=== PATIENT | female | born 1975 | race Asian ===

== ENCOUNTER 2018-08-15 11:35 | Inpatient (IN) | payer MEDICARE ==
[~2018-08-15] VITALS: Ht 162.6 cm; Wt 62.1 kg
[2018-08-15] MEDS ORDERED: diphenhydrAMINE 50 MG/ML VIAL IM PRN ×2 (11:45→12:45)
[2018-08-15] MEDS ORDERED: MAG HYD/AL HYD/SIMETH 30ML UDC PO PRN (11:45)
[2018-08-15] MEDS ORDERED: WATER STERILE 10 ML VIAL IM ONLY PRN (11:45)
[2018-08-15] MEDS ORDERED: LORazepam 2 MG/ML VIAL IM PRN (11:45)
[2018-08-15] MEDS ORDERED: OLANZapine 10 MG VIAL IM ONLY PRN (11:45)
[2018-08-15 13:03] VITALS: BP 115/74
[2018-08-15] MEDS ORDERED: QUEtiapine FUM 100 MG TAB PO PRN (19:55)
[2018-08-16] MEDS: MULTIVITAMINS TAB PO SCH (08:03)
[2018-08-16] MEDS: QUEtiapine FUM 25 MG TAB PO SCH (09:24)
[2018-08-16] MEDS ORDERED: QUEtiapine FUM 100 MG TAB PO PRN (10:50)
--- NOTE | 2018-08-16 14:10 | SCHAAF H&P ---
DATE OF ADMISSION: August 15, 2018 ATTENDING PHYSICIAN Ronnie Koch MD The patient was seen in the a.m. of August 15, 2018 at approximately 0800 hours for note concerning this dictation. PRESENTING PROBLEM, CHIEF COMPLAINT This is a 42-year-old single female who was transferred from [facility] where the patient was placed on emergency detainment and subsequently held on a commitment to the [facility]. The patient has not been in [place] long. The patient was apparently found engaging in erratic behavior and brought to the hospital around 2 to 3 weeks ago. The patient has been there ever since. The patient has a presumed long-standing history of schizophrenia or other psychotic type illness. Please refer to records from [facility] at this time, as patient unable to be affectively interviewed. MENTAL HEALTH HISTORY Is largely unknown, although records indicate that the patient has had an extensive psychiatric history with treatment for psychotic illness and according to family members that were contacted by [facility] unable to maintain structured living in [place] area where the patient is thought to be originally from. For the rest of the family, medical, social history, please see [facility] notes. SUBSTANCE ABUSE HISTORY Remains largely unknown. The patient is noted to be on the unit here at [facility] talking about LSD but is not believed to have had a positive drug screen upon arrival in [facility] for any detectable substances. PHYSICAL EXAMINATION Please see transfer notes from [facility]. Upon arrival here to the [facility] physical exam appears unremarkable. The patient very cooperative upon initial entrance to the hospital. Smiling appropriately. No acute medical distress. Vital signs at the time of arrival to Behavioral Health at [facility]: Temperature 98.5, pulse 80, blood pressure 115/74 and pulse oximetry 97% on room air. The patient not on any medications at time of arrival. LABORATORY DATA For most recent laboratory data, please see [place] notes as well. MENTAL STATUS EXAMINATION GENERAL APPEARANCE, BEHAVIOR AND ATTITUDE: The patient known to exhibit many varying types of affects during short presentation here on [facility]. The patient can be very talkative and then the patient can almost be mute within minutes later. The patient nonaggressive so far in the [facility]. The patient also noted to be fainting sleeping at times on the Behavioral Health Unit when moments before entering room, she was noted to be alert via camera. The patient at times able to make good eye contact and cooperative, again at others appears resistant to conversation. SPEECH: Initially was largely within normal limits. MOOD: Appeared happy. AFFECT: Full and bright and affect remains ever changing. THOUGHT PROCESSES: No obvious loose associations or flight of ideas could be detected so far. However, needs further evaluation. THOUGHT CONTENT: Auditory or possibly visual hallucinations remain a likely possibility as well as delusions and thought broadcastings and ideas of reference. However, these need to be further evaluated as well at the time of this dictation. The patient was known to be aggressive on the unit in [place] prior to arrival here and this may indicate some sort of homicidal ideation. There is no evidence of parasuicidal behaviors on the unit since arrival. SENSORIUM: Initially appeared clear. COGNITION: Initially appeared to be alert and oriented to person, place, time and not fully to situation. MEMORY: Immediate, recent and remote unable to assess at this time. INTELLIGENCE: Unable to fully assess but estimated to likely be average based on available information. INSIGHT AND JUDGMENT: Remains grossly impaired due to untreated psychotic illness at time of arrival. ASSESSMENT This is a 42-year-old female originally from [place]. There is some contacts to be made regarding collateral information from family members. The patient appears to have suffered from long-standing chronic mental illness with likely multiple attempts at treatment through the years. She is on the wait list to the [facility] at the time of arrival to [facility]. Will continue to try to slowly introduce Seroquel in this patient who upon arrival was resistant to medication use. DIAGNOSES PER DSM-V 1. Schizophrenia versus schizoaffective disorder. 2. Limitations of illness long-standing in nature including employment, financial, and likely limited social support certainly in the [place] area. PLAN 1. Will admit to the unit. 2. Necessary precautions will be implemented. 3. The patient will participate to the best of her ability in therapy. 4. We will work with Seroquel for right now to insure the patient has good sleep and any underlying psychosis is under control. Will slowly titrate for effect. 5. Collateral information is a necessity 6. Estimated length of stay unknown at the time of admission. The patient again on the [facility] wait list. [facility]
[2018-08-16] MEDS: QUEtiapine FUM 100 MG TAB PO SCH (21:00)
[2018-08-17] MEDS: MULTIVITAMINS TAB PO SCH (08:44)
[2018-08-17] MEDS: QUEtiapine FUM 25 MG TAB PO SCH (08:44)
[2018-08-17 11:08] VITALS: BP 121/77
--- NOTE | 2018-08-17 12:00 | BHS Progress Note ---
[facility] - Subjective Progress Notes Subjective Patient was able to come to treatment team room today for meeting, and overall was able to interact appropriately. Patient proclaims that "blacks and asians" should be exterminated, and notably this patient is of descent. Patient remains compliant with seroquel at this time, and reports she is happy that it helps "her sleep", which she admits has been a problem for her. Patient denies any other symptoms. Suicidal Ideation: None Homicidal Ideation: Ongoing [facility] - Objective Physical Exam Vital Signs Vital Signs Date Time Temp Pulse Resp B/P (MAP) Pulse Ox O2 Delivery O2 Flow Rate FiO2 08/17/18 11:08 98.8 93 13 121/77 (92) 96 Room Air Muscle Strength and Tone: WNL Gait and Station: Steady [facility] Medications Reviewed: Side Effects, Benefits of Medication, Risks Allergies Reviewed: Yes Mental Status Exam General Appearance: Casual, Well Groomed, Good Eye Contact, Cooperative, Polite, Good Interaction; No Psychomotor Agitation, No Psychomotor Retardation; Bizarre Mannerisms (at times) Speech: Clear, Spontaneous, Normal Rate, Normal Rhythm, Normal Volume, Normal Tone; No Garbled, No Rambling, No Inappropriate Mood: Euthymic Affect: Full and Appropriate, Calm; No Withdrawn, No Tearful, No Anxious, No Agitated Thought Process: Flight of Ideas (likely present) Thought Content: No Suicidal Ideation; Homicidal Ideation (towards "blacks and asians"), Auditory Halllucinations (likely present); No Visual Hallucinations, No Thought Broadcasting, No Ideas of Reference Sensorium: Clear Cognition: Alert & Oriented-Person, Alert & Oriented-Place; No Alert & Oriented-Time, No Nqmba-Vtknvkmi-Rhwpmnvur Memory: Immediate, Recent, Remote Intelligence: Average Insight Judgment: Poor (limited at this time. ) [facility] Assessment and Plan Ytld-yi-Nmrh Encounter Date: Aug 17, 2018 Gzty-iv-Jpay Encounter Time: 11:00 [facility] Plan: Necessary Precautions, Individual/Group Therapy, Admin/Titrate Meds, Educate Patient Tobacco Medications: Not Appropriate Condition Multpiple Antipsychotics Used: No Problems: (1) Schizophrenia Status: Chronic Condition 1. continue current treatment. 2. [facility] 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
[2018-08-18] MEDS: MULTIVITAMINS TAB PO SCH ×2 (08:27→09:00)
[2018-08-18] MEDS: QUEtiapine FUM 25 MG TAB PO SCH ×2 (08:27→09:00)
--- NOTE | 2018-08-18 08:56 | BHS Progress Note ---
[facility] - Subjective Progress Notes Subjective Patient continues to have thoughts of the need of extermination of "blacks abnd asians" . Noted this AM to be refusing her low does seroquel, but has taken it at night, as self report shows that her sleep had previously been "very little" Will encourage medication compliance in this patient who has long standing mental illness. Remains on commitment to [facility]. Patient noted to be having menstrual cycle and refusing care and not engaging in self care today, regarding this. Suicidal Ideation: None Homicidal Ideation: Ongoing [facility] - Objective Physical Exam Vital Signs Vital Signs Date Time Temp Pulse Resp B/P (MAP) Pulse Ox O2 Delivery O2 Flow Rate FiO2 08/17/18 11:08 98.8 93 13 121/77 (92) 96 Room Air Muscle Strength and Tone: WNL Gait and Station: Steady [facility] Medications Reviewed: Side Effects, Benefits of Medication, Risks Allergies Reviewed: Yes Mental Status Exam General Appearance: Casual, Well Groomed, Good Eye Contact, Cooperative, Polite, Good Interaction; No Psychomotor Agitation, No Psychomotor Retardation; Bizarre Mannerisms (at times) Speech: Clear, Spontaneous, Normal Rate, Normal Rhythm, Normal Volume, Normal Tone; No Garbled, No Rambling, No Inappropriate Mood: Euthymic Affect: Full and Appropriate, Calm; No Withdrawn, No Tearful, No Anxious, No Agitated Thought Process: Flight of Ideas (likely present) Thought Content: No Suicidal Ideation; Homicidal Ideation (towards "blacks and asians"), Auditory Halllucinations (likely present); No Visual Hallucinations, No Thought Broadcasting, No Ideas of Reference Sensorium: Clear Cognition: Alert & Oriented-Person, Alert & Oriented-Place; No Alert & Oriented-Time, No Yghnh-Qqlmuitp-Rczwfzbtw Memory: Immediate, Recent, Remote Intelligence: Average Insight Judgment: Poor (limited at this time. ) [facility] Assessment and Plan Ixlq-nu-Yuvg Encounter Date: Aug 18, 2018 Jhdc-ae-Vrqt Encounter Time: 09:00 [facility] Plan: Necessary Precautions, Individual/Group Therapy, Admin/Titrate Meds, Educate Patient Tobacco Medications: Not Appropriate Condition Multpiple Antipsychotics Used: No Problems: (1) Schizophrenia Status: Chronic Condition 1. encourage self care, or acceptance of aid, and medication compliance. [facility]. [facility] 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
[2018-08-18] MEDS: QUEtiapine FUM 100 MG TAB PO SCH (22:31)
[2018-08-19 06:31] VITALS: BP 112/72
[2018-08-19] MEDS: QUEtiapine FUM 25 MG TAB PO SCH (08:06)
[2018-08-19] MEDS: MULTIVITAMINS TAB PO SCH (08:39)
--- NOTE | 2018-08-19 10:50 | NUR ---
At approximately 1025 patient was heard yelling in the TV room. Pt was visualized on the camera system kicking a table in the TV room while there was another pt in the room with her. Pt was approached by Paper InspectorOsmani Hernandez. He asked why she was yelling, and what was wrong. Pt stated that she was mad because, "I have no one to slave around." Pt left TV room and went back to her room, on her own volition, in the Adolescent area. The portable television was removed from the area, and the doors to the Adolescent area were shut and locked for the safety of the other patients. Patient is currently segregated and angry that the doors are locked, but not breaking anything or yelling. She is sitting in her room on her bed, but escalates when staff attempt to talk to her. She states that she is supposed to break things when she is angry and that this is not a hospital.
--- NOTE | 2018-08-19 11:49 | BHS Progress Note ---
[facility] - Subjective Progress Notes Subjective Patient seen in room after she left eating area after kicking furniture, yelling Sitting on bed looking at magazine, no eye contact, appears anger "Go away. I don't want to talk." Unable to complete MH assessment due to refusal to engage with team members with encouragement Refused am Seroquel yesterday, taking medication at night Will continue to encourage medication compliance, awaiting [facility] transfer Remains on commitment to [facility] Suicidal Ideation: None Homicidal Ideation: Ongoing [facility] - Objective Physical Exam Vital Signs Allergies Coded Allergies No Known Drug Allergies (Unverified08/15/18) Deferred Medications (Trade) Dose Ordered Sig/Juana Route PRN Reason Start Time Stop Time Status Last Admin Dose Admin Multivitamins (Thera-M Enhanced Tab (Or Equiv)) 1 each QDAY PO 08/16/18 09:00 09/15/18 08:59 08/17/18 08:44 Quetiapine Fumarate (SEROquel 100 MG TAB (OR EQUIV)) 100 mg QHS PO 08/16/18 21:00 09/15/18 20:59 08/18/18 22:31 Quetiapine Fumarate (SEROquel 25 MG TAB (OR EQUIV)) 50 mg QAM PO 08/16/18 09:00 09/15/18 08:59 08/19/18 08:06 Muscle Strength and Tone: WNL Gait and Station: Steady [facility] Medications Reviewed: Side Effects, Benefits of Medication, Risks Allergies Reviewed: Yes Mental Status Exam General Appearance: Casual; No Well Groomed, No Good Eye Contact, No Cooperative, No Polite, No Good Interaction, No Psychomotor Agitation, No Psychomotor Retardation; Bizarre Mannerisms (at times), Other (menstrual cycle, refusing hygiene; poor eye contact ) Speech: No Clear, No Spontaneous, No Normal Rate, No Normal Rhythm; Normal Volume; No Normal Tone, No Garbled, No Rambling, No Inappropriate; Other (Re fusing to engage w/team members) Mood: No Euthymic; Other (Labile) Affect: No Full and Appropriate, No Calm, No Withdrawn, No Tearful, No Anxious; Agitated Thought Process: Flight of Ideas (likely present) Thought Content: No Suicidal Ideation; Homicidal Ideation (towards "blacks and asians"), Auditory Halllucinations (likely present); No Visual Hallucinations, No Thought Broadcasting, No Ideas of Reference Sensorium: Clear Cognition: Alert & Oriented-Person, Alert & Oriented-Place; No Alert & Oriented-Time, No Qzbna-Kvstruor-Zasxdiszc Memory: Immediate, Recent, Remote Intelligence: Average Insight Judgment: Poor (limited at this time. ) Micro[facility] Medications (Trade) Dose Ordered Sig/Juana Route PRN Reason Start Time Stop Time Status Last Admin Dose Admin Multivitamins (Thera-M Enhanced Tab (Or Equiv)) 1 each QDAY PO 08/16/18 09:00 09/15/18 08:59 08/17/18 08:44 Quetiapine Fumarate (SEROquel 100 MG TAB (OR EQUIV)) 100 mg QHS PO 08/16/18 21:00 09/15/18 20:59 08/18/18 22:31 Quetiapine Fumarate (SEROquel 25 MG TAB (OR EQUIV)) 50 mg QAM PO 08/16/18 09:00 09/15/18 08:59 08/19/18 08:06 Vital Signs Date Time Temp Pulse Resp B/P (MAP) Pulse Ox O2 Delivery O2 Flow Rate FiO2 08/19/18 06:31 96.6 105 112/72 (85) 94 Room Air 08/17/18 11:08 13 Additional Findings/Notes: Medications (Trade) Dose Ordered Sig/Juana Route PRN Reason Start Time Stop Time Status Last Admin Dose Admin Multivitamins (Thera-M Enhanced Tab (Or Equiv)) 1 each QDAY PO 08/16/18 09:00 09/15/18 08:59 08/17/18 08:44 Quetiapine Fumarate (SEROquel 100 MG TAB (OR EQUIV)) 100 mg QHS PO 08/16/18 21:00 09/15/18 20:59 08/18/18 22:31 Quetiapine Fumarate (SEROquel 25 MG TAB (OR EQUIV)) 50 mg QAM PO 08/16/18 09:00 09/15/18 08:59 08/19/18 08:06 [facility] Assessment and Plan Eksb-qq-Mktq Encounter Date: Aug 19, 2018 Nakk-vk-Mtkw Encounter Time: 11:42 [facility] Plan: Necessary Precautions, Individual/Group Therapy, Admin/Titrate Meds, Educate Patient Tobacco Medications: Not Appropriate Condition Multpiple Antipsychotics Used: No Problems: (1) Schizophrenia Status: Chronic Condition Continue encouragement with medication compliance Maintain precautions Awaiting [facility] placement Problem Qualifiers (1) Schizophrenia: 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
[2018-08-19] MEDS: QUEtiapine FUM 100 MG TAB PO SCH ×2 (21:00→21:40)
[2018-08-20 06:00] VITALS: BP 122/87
[2018-08-20] MEDS: QUEtiapine FUM 25 MG TAB PO SCH (08:13)
[2018-08-20] MEDS: MULTIVITAMINS TAB PO SCH (08:15)
--- NOTE | 2018-08-20 10:40 | BHS Progress Note ---
[facility] - Subjective Progress Notes Subjective Attempt engaging with patient in room, is in adolescent area as was yelling and kicking furniture yesterday Behavioral plan has been written and patient signed with cornelia Sitting at table and immediately gets up and goes to bathroom, attempts at slamming that door, refusing interaction with provider No eye contact, appears anger Unable to complete MH assessment due to refusal to engage with team members with encouragement Compliant with Seroquel, will continue to encourage medication compliance, awaiting [facility] transfer Remains on commitment to [facility] Suicidal Ideation: None Homicidal Ideation: Ongoing S - Objective Physical Exam Vital Signs Medications (Trade) Dose Ordered Sig/Juana Route PRN Reason Start Time Stop Time Status Last Admin Dose Admin Multivitamins (Thera-M Enhanced Tab (Or Equiv)) 1 each QDAY PO 08/16/18 09:00 09/15/18 08:59 08/17/18 08:44 Quetiapine Fumarate (SEROquel 100 MG TAB (OR EQUIV)) 100 mg QHS PO 08/16/18 21:00 09/15/18 20:59 08/19/18 21:40 Quetiapine Fumarate (SEROquel 25 MG TAB (OR EQUIV)) 50 mg QAM PO 08/16/18 09:00 09/15/18 08:59 08/20/18 08:13 Muscle Strength and Tone: WNL Gait and Station: Steady [facility] Medications Reviewed: Side Effects, Benefits of Medication, Risks Allergies Reviewed: Yes Mental Status Exam General Appearance: Casual; No Well Groomed, No Good Eye Contact, No Cooperative, No Polite, No Good Interaction, No Psychomotor Agitation, No Psychomotor Retardation; Bizarre Mannerisms (at times), Other (menstrual cycle, refusing hygiene; poor eye contact ) Speech: No Clear, No Spontaneous, No Normal Rate, No Normal Rhythm, No Normal Volume, No Normal Tone, No Garbled, No Rambling, No Inappropriate; Other (Refusing to engage w/team members) Mood: No Euthymic; Other (Labile) Affect: No Full and Appropriate, No Calm, No Withdrawn, No Tearful, No Anxious; Agitated Thought Process: Flight of Ideas (likely present) Thought Content: No Suicidal Ideation; Homicidal Ideation (towards "blacks and asians" ), Auditory Halllucinations (likely present); No Visual Hallucinations, No Thought Broadcasting, No Ideas of Reference Sensorium: Clear Cognition: Alert & Oriented-Person, Alert & Oriented-Place; No Alert & Anirudh ented-Time, No Jrkgu-Chbzzoep-Yofrhzjuk Memory: Immediate, Recent, Remote Intelligence: Average Insight Judgment: Poor (limited at this time. 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
[2018-08-20] MEDS: QUEtiapine FUM 100 MG TAB PO SCH (21:00)
--- NOTE | 2018-08-20 22:49 | NUR ---
Pt refused medication at hs. at approximately 2245 pt at the door. Pt stated she wanted to take her medication. Nurse took medication to her pt refused again. pt went into her room and shut the door behind her. When asked why she changed her mind again. Pt did not respond no eye contact made. Nurse wasted medication #2 for the night.
[2018-08-21] MEDS: QUEtiapine FUM 25 MG TAB PO SCH (08:20)
[2018-08-21] MEDS: MULTIVITAMINS TAB PO SCH (09:00)
--- NOTE | 2018-08-21 09:44 | BHS Progress Note ---
[facility] - Subjective Progress Notes Subjective Patient refusing to acknowledge this provider in her room this AM, and initially refusing medication this AM, Later patient took the seroquel, however did not take seroquel last PM, and poor sleep resulted. No periods of unexplained yelling, or being rough on furniture today so far. Patient will reside in segregated area. No other changes today. Suicidal Ideation: None Homicidal Ideation: None [facility] - Objective Physical Exam Vital Signs Vital Signs Date Time Temp Pulse Resp B/P (MAP) Pulse Ox O2 Delivery O2 Flow Rate FiO2 08/20/18 06:00 97.3 73 16 122/87 (99) 94 Room Air Muscle Strength and Tone: WNL Gait and Station: Steady [facility] Medications Reviewed: Side Effects, Benefits of Medication, Risks Allergies Reviewed: Yes Mental Status Exam General Appearance: Casual; No Well Groomed, No Good Eye Contact, No Coope rative, No Polite, No Good Interaction, No Psychomotor Agitation, No Psychomotor Retardation; Bizarre Mannerisms (at times) Speech: No Clear, No Spontaneous, No Normal Rate, No Normal Rhythm, No Normal Volume, No Normal Tone, No Garbled, No Rambling, No Inappropriate; Other (Refusing to engage w/team members) Mood: No Euthymic; Other (Labile) Affect: No Full and Appropriate, No Calm, No Withdrawn, No Tearful, No Anxious; Agitated (sporadically) Thought Process: Flight of Ideas (likely present) Thought Content: No Suicidal Ideation; Homicidal Ideation (towards "blacks and asians" ), Auditory Halllucinations (likely present); No Visual Hallucinations, No Thought Broadcasting, No Ideas of Reference Sensorium: Clear Cognition: Alert & Oriented-Person, Alert & Oriented-Place; No Alert & Oriented-Time, No Iopqb-Cmqttqro-Ourpxoprf Memory: Immediate, Recent, Remote Intelligence: Average Insight Judgment: Poor (limited at this time. ) [facility] Assessment and Plan Vieq-ii-Fqzk Encounter Date: Aug 21, 2018 Jwna-pb-Zplv Encounter Time: 08:00 [facility] Plan: Necessary Precautions, Individual/Group Therapy, Admin/Titrate Meds, Educate Patient Tobacco Medications: Not Appropriate Condition Multpiple Antipsychotics Used: No Problems: (1) Schizophrenia Status: Chronic Condition 1. continue treatment. 2. encourage medication compliance. Problem Qualifiers (1) Schizophrenia: Schizophrenia type: undifferentiated schizophrenia Qualified Codes: F20.3 - Undifferentiated schizophrenia LUI MERLOS MD Aug 21, 2018 09:44
[2018-08-21] MEDS: QUEtiapine FUM 100 MG TAB PO SCH (21:00)
--- NOTE | 2018-08-22 00:11 | NUR ---
Pt knocked on door with admission packet paperwork in hand and requested an AMA form. It was explained to the pt that, while I was not denying her the form, it was only applicable to voluntary patients and she had already been committed by the court [facility]. The pt walked away and sat on her bed reading more paperwork for approx. another 15 minutes and then approached the door again, stating that she needed to call 911. When asked why, the pt stated that there was an "emergency with a family member, I think". It was explained to the pt that there are hours for phone usage for patients and they are not allowed to use the phone at night. The pt then waved the papers in front of me and said "It says in writing to call 911 if there is an emergency!". I pointed out to the pt that she had no reason to assume that there was an emergency with her family in [place] in the middle of the night and I had received no phone calls in this regard (her family is aware that she is a pt here). The pt then demanded to know what my name was, after which she began to get louder. I closed the door and walked away as there was little point in arguing with the pt and she appeared to be trying to escalate the situation. The pt hit the door and yelled "You fucking bitch!", after which she stormed into her room and lay down on the bed. It is of note that the pt has refused her evening medications two days in a row now.
[2018-08-22] MEDS: QUEtiapine FUM 25 MG TAB PO SCH (08:07)
[2018-08-22] MEDS: MULTIVITAMINS TAB PO SCH (08:08)
--- NOTE | 2018-08-22 12:54 | BHS Progress Note ---
[facility] - Subjective Progress Notes Subjective Patient continues to be silent today, but calmly sitting in room, watching TV. Avoids interaction today, able to eat and appears to be sleeping at night some while not taking Seroquel on the unit. Will continue to try and engage patient, no other concerns. Suicidal Ideation: None Homicidal Ideation: Ongoing [facility] - Objective Physical Exam Vital Signs Vital Signs Date Time Temp Pulse Resp B/P (MAP) Pulse Ox O2 Delivery O2 Flow Rate FiO2 08/20/18 06:00 97.3 73 16 122/87 (99) 94 Room Air Muscle Strength and Tone: WNL Gait and Station: Steady [facility] Medications Reviewed: Side Effects, Benefits of Medication, Risks Allergies Reviewed: Yes Mental Status Exam General Appearance: Casual; No Well Groomed, No Good Eye Contact, No Cooperative, No Polite, No Good Interaction, No Psychomotor Agitation, No Psychomotor Retardation; Bizarre Mannerisms (at times) Speech: No Clear, No Spontaneous, No Normal Rate, No Normal Rhythm, No Normal Volume, No Normal Tone, No Garbled, No Rambling, No Inappropriate; Other (Refusing to engage w/team members) Mood: No Euthymic; Other (Labile) Affect: No Full and Appropriate, No Calm, No Withdrawn, No Tearful, No Anxious; Agitated (sporadically) Thought Process: Flight of Ideas (likely present) Thought Content: No Suicidal Ideation; Homicidal Ideation (towards "blacks and asians" ), Auditory Halllucinations (likely present); No Visual Hallucinations, No Thought Broadcasting, No Ideas of Reference Sensorium: Clear Cognition: Alert & Oriented-Person, Alert & Oriented-Place; No Alert & Oriented-Time, No Qhylr-Gzfbcaqc-Kuaxonhne Memory: Immediate, Recent, Remote Intelligence: Average Insight Judgment: Poor (limited at this time. ) [facility] Assessment and Plan Ijtk-[id number] Encounter Date: Aug 22, 2018 [id number] Encounter Time: 12:00 [facility] Plan: Necessary Precautions, Individual/Group Therapy, Admin/Titrate Meds, Educate Patient Tobacco Medications: Not Appropriate Condition Multpiple Antipsychotics Used: No Problems: (1) Schizophrenia Status: Chronic Condition 1. continue to encourage compliance. 2. await [facility]. 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
[2018-08-22] MEDS: QUEtiapine FUM 100 MG TAB PO SCH (21:00)
[2018-08-23] MEDS: QUEtiapine FUM 25 MG TAB PO SCH (07:55)
[2018-08-23] MEDS: MULTIVITAMINS TAB PO SCH (07:56)
--- NOTE | 2018-08-23 09:51 | BHS Progress Note ---
[facility] - Subjective Progress Notes Subjective Patient remains mildly uncooperative on the unit, refusing medication, but not acting out violently, and mostly demonstrating appropriate communication. Will continue to encourage compliance with medications. Patient would not communicate with this provider, but was noted to be smiling while pretending to be asleep while being spoken to by this provider. Suicidal Ideation: None Homicidal Ideation: None [facility] - Objective Physical Exam Vital Signs Vital Signs Date Time Temp Pulse Resp B/P (MAP) Pulse Ox O2 Delivery O2 Flow Rate FiO2 08/20/18 06:00 97.3 73 16 122/87 (99) 94 Room Air Muscle Strength and Tone: WNL Gait and Station: Steady [facility] Medications Reviewed: Side Effects, Benefits of Medication, Risks Allergies Reviewed: Yes Mental Status Exam General Appearance: Casual; No Well Groomed, No Good Eye Contact, No Cooperative, No Polite, No Good Interaction, No Psychomotor Agitation, No Psychomotor Retardation; Bizarre Mannerisms (at times) Speech: No Clear, No Spontaneous, No Normal Rate, No Normal Rhythm, No Normal Volume, No Normal Tone, No Garbled, No Rambling, No Inappropriate; Other (Refusing to engage w/team members) Mood: Euthymic, Other (variable) Affect: No Full and Appropriate, No Calm, No Withdrawn, No Tearful, No Anxious; Agitated (sporadically) Thought Process: Flight of Ideas (likely present) Thought Content: No Suicidal Ideation; Homicidal Ideation (towards "blacks and asians" ), Auditory Halllucinations (likely present); No Visual Hallucinations, No Thought Broadcasting, No Ideas of Reference Sensorium: Clear Cognition: Alert & Oriented-Person, Alert & Oriented-Place; No Alert & Oriented-Time, No Jfmbf-Aqflcjiq-Pefwhfsvv Memory: Immediate, Recent, Remote Intelligence: Average Insight Judgment: Poor (limited at this time. ) [facility] Assessment and Plan Mujj-js-Rllq Encounter Date: Aug 23, 2018 [id number] Encounter Time: 08:00 [facility] Plan: Necessary Precautions, Individual/Group Therapy, Admin/Titrate Meds, Educate Patient Tobacco Medications: Not Appropriate Condition Multpiple Antipsychotics Used: No Problems: (1) Schizophrenia Status: Chronic Condition 1. encourage compliance with seroquel 2. continue commitment. 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
[2018-08-23] MEDS: QUEtiapine FUM 100 MG TAB PO SCH (20:28)
[2018-08-24] MEDS: MULTIVITAMINS TAB PO SCH (08:05)
[2018-08-24] MEDS: QUEtiapine FUM 25 MG TAB PO SCH (08:05)
--- NOTE | 2018-08-24 12:25 | BHS Progress Note ---
[facility] - Subjective Progress Notes Subjective Patient interacting some with this provider today, demonstrating some appropriate sense of humor. Patient denies any psychiatric concerns, appears to be sleeping well at night, eating well. No other concerns today. Non- aggressive toward staff physically, but verbal aggression sometime present. Suicidal Ideation: None Homicidal Ideation: None [facility] - Objective Physical Exam Muscle Strength and Tone: WNL Gait and Station: Steady [facility] Medications Reviewed: Side Effects, Benefits of Medication, Risks Allergies Reviewed: Yes Mental Status Exam General Appearance: Casual; No Well Groomed, No Good Eye Contact, No Coope rative, No Polite, No Good Interaction, No Psychomotor Agitation, No Psychomotor Retardation; Bizarre Mannerisms (at times) Speech: No Clear, No Spontaneous, No Normal Rate, No Normal Rhythm, No Normal Volume, No Normal Tone, No Garbled, No Rambling, No Inappropriate; Other (Refusing to engage w/team members, mostly, however did show limited engagement today. ) Mood: Euthymic, Other (variable) Affect: No Full and Appropriate, No Calm, No Withdrawn, No Tearful, No Anxious; Agitated (sporadically) Thought Process: Flight of Ideas (likely present) Thought Content: No Suicidal Ideation; Homicidal Ideation (towards "blacks and asians" ), Auditory Halllucinations (likely present); No Visual Hallucinations, No Thought Broadcasting, No Ideas of Reference Sensorium: Clear Cognition: Alert & Oriented-Person, Alert & Oriented-Place; No Alert & Oriented-Time, No Lnvib-Jrhyxzdr-Plwnlnouc Memory: Immediate, Recent, Remote Intelligence: Average Insight Judgment: Poor (limited at this time. ) [facility] Assessment and Plan Dcwh-yh-[id number] Encounter Date: Aug 24, 2018 [id number] Encounter Time: 10:00 [facility] Plan: Necessary Precautions, Individual/Group Therapy, Admin/Titrate Meds, Educate Patient Tobacco Medications: Not Appropriate Condition Multpiple Antipsychotics Used: No Problems: (1) Schizophrenia Status: Chronic Condition 1. continue to encourage open communication. 2. encourage medication/therapy compliance. 3. await [facility]. 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
[2018-08-24 14:19] VITALS: BP 126/72
[2018-08-24] MEDS: QUEtiapine FUM 100 MG TAB PO SCH (20:22)
[2018-08-25] MEDS: MULTIVITAMINS TAB PO SCH ×2 (08:14→09:00)
[2018-08-25] MEDS: QUEtiapine FUM 25 MG TAB PO SCH ×2 (08:14→09:00)
--- NOTE | 2018-08-25 13:35 | BHS Progress Note ---
[facility] - Subjective Progress Notes Subjective Patient pretending to be asleep today to avoid talking with this provider or other staff, patient not verbalizing any complaints. Will continue to encourage compliance with care. Non aggressive toward staff or other patients. Suicidal Ideation: None Homicidal Ideation: Ongoing [facility] - Objective Physical Exam Vital Signs Vital Signs Date Time Temp Pulse Resp B/P (MAP) Pulse Ox O2 Delivery O2 Flow Rate FiO2 08/24/18 14:19 99.3 87 126/72 (90) 96 Room Air Muscle Strength and Tone: WNL Gait and Station: Steady [facility] Medications Reviewed: Side Effects, Benefits of Medication, Risks Allergies Reviewed: Yes Mental Status Exam General Appearance: Casual; No Well Groomed, No Good Eye Contact, No Co operative, No Polite, No Good Interaction, No Psychomotor Agitation, No Psychomotor Retardation; Bizarre Mannerisms (at times) Speech: No Clear, No Spontaneous, No Normal Rate, No Normal Rhythm, No Normal Volume, No Normal Tone, No Garbled, No Rambling, No Inappropriate; Other (Refusing to engage w/team members, mostly, however did show limited engagement today. ) Mood: Euthymic, Other (variable) Affect: No Full and Appropriate, No Calm, No Withdrawn, No Tearful, No Anxious; Agitated (sporadically) Thought Process: Flight of Ideas (likely present) Thought Content: No Suicidal Ideation; Homicidal Ideation (towards "blacks and asians" ), Auditory Halllucinations (likely present); No Visual Hallucinations, No Thought Broadcasting, No Ideas of Reference Sensorium: Clear Cognition: Alert & Oriented-Person, Alert & Oriented-Place; No Alert & Oriented-Time, No Puvod-Lecdokhz-Cxefgyaig Memory: Immediate, Recent, Remote Intelligence: Average Insight Judgment: Poor (limited at this time. ) [facility] Assessment and Plan Pajq-od-Jxdu Encounter Date: Aug 25, 2018 Jddo-pk-[id number] Encounter Time: 11:00 [facility] Plan: Necessary Precautions, Individual/Group Therapy, Admin/Titrate Meds, Educate Patient Tobacco Medications: Not Appropriate Condition Multpiple Antipsychotics Used: No Problems: (1) Schizophrenia Status: Chronic Condition 1. encourage compliance.with treatment. 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
[2018-08-25] MEDS: QUEtiapine FUM 100 MG TAB PO SCH (20:40)
[2018-08-26] MEDS: QUEtiapine FUM 25 MG TAB PO SCH (09:00)
[2018-08-26] MEDS: MULTIVITAMINS TAB PO SCH (09:00)
--- NOTE | 2018-08-26 11:35 | BHS Progress Note ---
[facility] - Subjective Progress Notes Subjective "Get out of here." This provider attempts engaging w/patient in adolescent area. She is sitting on bed reading magazines and promptly gets up and leaves to bathroom. Earlier this am was talking on phone, escalating and slamming phone, escorted to adolescent area by staff Patient avoids talking with this provider or other staff, patient not verbalizing any complaints. Will continue to encourage compliance with care. No n aggressive toward staff or other patients. Unable to complete MH assessment due to refusal to engage in conversation, refusing medications. [facility] - Objective Physical Exam Vital Signs Vital Signs Date Time Temp Pulse Resp B/P (MAP) Pulse Ox O2 Delivery O2 Flow Rate FiO2 08/24/18 14:19 99.3 87 126/72 (90) 96 Room Air Deferred Medications (Trade) Dose Ordered Sig/Juana Route PRN Reason Start Time Stop Time Status Last Admin Dose Admin Multivitamins (Thera-M Enhanced Tab (Or Equiv)) 1 each QDAY PO 08/16/18 09:00 09/15/18 08:59 08/24/18 08:05 Quetiapine Fumarate (SEROquel 100 MG TAB (OR EQUIV)) 100 mg QHS PO 08/16/18 21:00 09/15/18 20:59 08/25/18 20:40 Quetiapine Fumarate (SEROquel 25 MG TAB (OR EQUIV)) 50 mg QAM PO 08/16/18 09:00 09/15/18 08:59 08/24/18 08:05 Muscle Strength and Tone: WNL Gait and Station: Steady [facility] Medications Reviewed: Side Effects, Benefits of Medication, Risks Allergies Reviewed: Yes Mental Status Exam General Appearance: Casual, Well Groomed; No Good Eye Contact, No Cooperative, No Polite, No Good Interaction, No Psychomotor Agitation, No Psychomotor Retardation; Bizarre Mannerisms (at times) Speech: No Clear, No Spontaneous, No Normal Rate, No Normal Rhythm, No Normal Volume, No Normal Tone, No Garbled, No Rambling, No Inappropriate; Other (Refusing to engage w/team members, mostly, avoids engagement in conversation today w/this provider, no interaction w/staff and refusing medications) Mood: No Euthymic; Other (variable) Affect: No Full and Appropriate, No Calm, No Withdrawn, No Tearful, No Anxious; Agitated (sporadically) Thought Process: Flight of Ideas (likely present) Thought Content: No Suicidal Ideation; Homicidal Ideation (towards "blacks and asians" since admit), Auditory Halllucinations (likely present); No Visual Hallucinations, No Thought Broadcasting, No Ideas of Reference Sensorium: Clear Cognition: Alert & Oriented-Person, Alert & Oriented-Place; No Alert & Oriented-Time, No Eqnck-Vuwbikqu-Wntycjvhe Memory: Immediate, Recent, Remote Intelligence: Average Insight Judgment: Poor (limited at this time. ) [facility] Assessment and Plan Dkia-[id number] Encounter Date: Aug 26, 2018 Euel-vb-Nqur Encounter Time: 11:32 [facility] Plan: Necessary Precautions, Individual/Group Therapy, Admin/Titrate Meds, Educate Patient Tobacco Medications: Not Appropriate Condition Multpiple Antipsychotics Used: No Problems: (1) Schizophrenia Status: Chronic Condition Continue encouragement to participate in care Encourage medications as prescribed Maintain precautions/safety Awaiting [facility] transfer, ongoing coordination of care Problem Qualifiers (1) Schizophrenia: 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
[2018-08-26] MEDS: QUEtiapine FUM 100 MG TAB PO SCH (21:00)
[2018-08-27] MEDS: MULTIVITAMINS TAB PO SCH (08:15)
[2018-08-27] MEDS: QUEtiapine FUM 25 MG TAB PO SCH (08:15)
--- NOTE | 2018-08-27 10:19 | BHS Progress Note ---
[facility] - Subjective Progress Notes Subjective This provider attempts engaging w/patient in adolescent area. She is laying on bed unwilling to speak to this provider and therapist Yesterday was talking on phone, escalating and slamming phone & was escorted to adolescent area by staff Patient avoids talking with this provider or other staff, patient not verbalizing any complaints. Will continue to encourage compliance with care. Non aggressive toward staff or other patients. Unable to complete MH assessment due to refusal to engage in conversation, took am medication. [facility] - Objective Physical Exam Vital Signs Vital Signs Date Time Temp Pulse Resp B/P (MAP) Pulse Ox O2 Delivery O2 Flow Rate FiO2 08/24/18 14:19 99.3 87 126/72 (90) 96 Room Air Muscle Strength and Tone: WNL Gait and Station: Steady [facility] Medications Reviewed: Side Effects, Benefits of Medication, Risks Allergies Reviewed: Yes Mental Status Exam General Appearance: Casual, Well Groomed; No Good Eye Contact, No Cooperative, No Polite, No Good Interaction, No Psychomotor Agitation, No Psychomotor Retardation; Bizarre Mannerisms (at times) Speech: No Clear, No Spontaneous, No Normal Rate, No Normal Rhythm, No Normal Volume, No Normal Tone, No Garbled, No Rambling, No Inappropriate; Other (Refusi ng to engage w/team members, mostly, avoids engagement in conversation today w/this provider, no interaction w/staff ) Mood: No Euthymic; Other (variable) Affect: No Full and Appropriate, No Calm, No Withdrawn, No Tearful, No Anxious, No Agitated (sporadically); Other (not responding to provider or team members today ) Thought Process: Flight of Ideas (likely present) Thought Content: No Suicidal Ideation; Homicidal Ideation (towards "blacks and asians" since admit), Auditory Halllucinations (likely present); No Visual Hallucinations, No Thought Broadcasting, No Ideas of Reference Sensorium: Clear Cognition: Alert & Oriented-Person, Alert & Oriented-Place; No Alert & Oriented-Time, No Urlsp-Fdtdhzuf-Bzqjycwsj Memory: Immediate, Recent, Remote Intelligence: Average Insight Judgment: Poor (limited at this time. ) [facility] Medications (Trade) Dose Ordered Sig/Juana Route PRN Reason Start Time Stop Time Status Last Admin Dose Admin Multivitamins (Thera-M Enhanced Tab (Or Equiv)) 1 each QDAY PO 08/16/18 09:00 09/15/18 08:59 08/24/18 08:05 Quetiapine Fumarate (SEROquel 100 MG TAB (OR EQUIV)) 100 mg QHS PO 08/16/18 21:00 09/15/18 20:59 08/25/18 20:40 Quetiapine Fumarate (SEROquel 25 MG TAB (OR EQUIV)) 50 mg QAM PO 08/16/18 09:00 09/15/18 08:59 08/27/18 08:15 Medications (Trade) Dose Ordered Sig/Juana Route PRN Reason Start Time Stop Time Status Last Admin Dose Admin Multivitamins (Thera-M Enhanced Tab (Or Equiv)) 1 each QDAY PO 08/16/18 09:00 09/15/18 08:59 08/24/18 08:05 Quetiapine Fumarate (SEROquel 100 MG TAB (OR EQUIV)) 100 mg QHS PO 08/16/18 21:00 09/15/18 20:59 08/25/18 20:40 Quetiapine Fumarate (SEROquel 25 MG TAB (OR EQUIV)) 50 mg QAM PO 08/16/18 09:00 09/15/18 08:59 08/27/18 08:15 [facility] Assessment and Plan Rsjf-wu-Wuns Encounter Date: Aug 27, 2018 [id number]-[id number] Encounter Time: 10:15 [facility] Plan: Necessary Precautions, Individual/Group Therapy, Admin/Titrate Meds, Educate Patient Tobacco Medications: Not Appropriate Condition Multpiple Antipsychotics Used: No Problems: (1) Schizophrenia Status: Chronic Condition Continue encouragement w/medications and treatment Ongoing precautions Awaiting [facility] placement Problem Qualifiers (1) Schizophrenia: 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
[2018-08-27 18:40] VITALS: BP 108/72
[2018-08-27] MEDS: QUEtiapine FUM 100 MG TAB PO SCH (22:10)
[2018-08-28 08:32] VITALS: BP 117/72
[2018-08-28] MEDS: QUEtiapine FUM 25 MG TAB PO SCH (08:42)
[2018-08-28] MEDS: MULTIVITAMINS TAB PO SCH (09:00)
--- NOTE | 2018-08-28 09:24 | BHS Progress Note ---
[facility] - Subjective Progress Notes Subjective Patient walking into treatment team this AM, at the request of staff, but quickly turning around and exiting the room when she saw therapist. Patient then pretending to be asleep, and refusing further contact. Patient was "yelling" in her room alone last night in her [place] tongue, and over the weekend became somewhat aggressive with telephone, but no direct aggression toward staffed has occurred. Suicidal Ideation: None Homicidal Ideation: None [facility] - Objective Physical Exam Vital Signs Vital Signs Date Time Temp Pulse Resp B/P (MAP) Pulse Ox O2 Delivery O2 Flow Rate FiO2 08/28/18 08:32 99.3 78 117/72 (87) 97 Room Air 08/27/18 18:40 16 Muscle Strength and Tone: WNL Gait and Station: Steady [facility] Medications Reviewed: Side Effects, Benefits of Medication, Risks Allergies Reviewed: Yes Mental Status Exam General Appearance: Casual, Well Groomed; No Good Eye Contact, No Cooperative, No Polite, No Good Interaction, No Psychomotor Agitation, No Psychomotor Retardation; Bizarre Mannerisms (at times) Speech: No Clear, No Spontaneous, No Normal Rate, No Normal Rhythm, No Normal Volume, No Normal Tone, No Garbled, No Rambling, No Inappropriate; Other (Refusing to engage w/team members, mostly, avoids engagement in conversation today w/this provider, no interaction w/staff ) Mood: No Euthymic; Other (variable) Affect: No Full and Appropriate, No Calm, No Withdrawn, No Tearful, No Anxious, No Agitated (sporadically); Other (not responding to provider or team members today ) Thought Process: Flight of Ideas (likely present) Thought Content: No Suicidal Ideation; Homicidal Ideation (towards "blacks and asians" since admit), Auditory Halllucinations (likely present); No Visual Hallucinations, No Thought Broadcasting, No Ideas of Reference Sensorium: Clear Cognition: Alert & Oriented-Person, Alert & Oriented-Place; No Alert & Oriented-Time, No Cepia-Bymosmgh-Lmoqtkard Memory: Immediate, Recent, Remote Intelligence: Average Insight Judgment: Poor (limited at this time. ) [facility] Assessment and Plan Ifyb-xq-Wpbw Encounter Date: Aug 28, 2018 Owmw-dr-Iunh Encounter Time: 09:00 [facility] Plan: Necessary Precautions, Individual/Group Therapy, Admin/Titrate Meds, Educate Patient Tobacco Medications: Not Appropriate Condition Multpiple Antipsychotics Used: No Problems: (1) Schizophrenia Status: Chronic Condition 1. encourage medication compliance. 2. increase seroquel to 200mg QHS. 3. [facility]. 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
[2018-08-28] MEDS: QUEtiapine FUM 100 MG TAB PO SCH (21:45)
--- NOTE | 2018-08-29 08:47 | BHS Progress Note ---
[facility] - Subjective Progress Notes Subjective Patient sitting upright in bed this AM, appeared to be reading. Patient completely consciously ignoring this provider and nurse in room, Patient refused medications last PM, and did not have any further verbal outbursts during the night. Will continue to encourage compliance and openness with staff. Appetite good, no physical aggression, patient has not resolved hurt hatred for asians and blacks, and demonstrated a diisdain for females more than male staff members. Suicidal Ideation: None Homicidal Ideation: Ongoing [facility] - Objective Physical Exam Vital Signs Vital Signs Date Time Temp Pulse Resp B/P (MAP) Pulse Ox O2 Delivery O2 Flow Rate FiO2 08/28/18 08:32 99.3 78 117/72 (87) 97 Room Air 08/27/18 18:40 16 Muscle Strength and Tone: WNL Gait and Station: Steady [facility] Medications Reviewed: Side Effects, Benefits of Medication, Risks Allergies Reviewed: Yes Mental Status Exam General Appearance: Casual, Well Groomed; No Good Eye Contact, No Cooperative, No Polite, No Good Interaction, No Psychomotor Agitation, No Psychomotor Retardation; Bizarre Mannerisms (at times) Speech: No Clear, No Spontaneous, No Normal Rate, No Normal Rhythm, No Normal Volume, No Normal Tone, No Garbled, No Rambling, No Inappropriate; Other (Refusing to engage w/team members, mostly, avoids engagement in conversation today w/this provider, no interaction w/staff ) Mood: No Euthymic; Other (variable) Affect: No Full and Appropriate, No Calm, No Withdrawn, No Tearful, No Anxious, No Agitated (sporadically); Other (not responding to provider or team members today ) Thought Process: Flight of Ideas (likely present) Thought Content: No Suicidal Ideation; Homicidal Ideation (towards "blacks and asians" since admit), Auditory Halllucinations (likely present); No Visual Hallucinations, No Thought Broadcasting, No Ideas of Reference Sensorium: Clear Cognition: Alert & Oriented-Person, Alert & Oriented-Place; No Alert & Oriented-Time, No Kglqm-Uxhsrfvq-Zpamfupvt Memory: Immediate, Recent, Remote Intelligence: Average Insight Judgment: Poor (limited at this time. ) [facility] Assessment and Plan Dkar-up-Jfxu Encounter Date: Aug 29, 2018 Yhax-zc-Rhmk Encounter Time: 08:00 [facility] Plan: Necessary Precautions, Individual/Group Therapy, Admin/Titrate Meds, Educate Patient Tobacco Medications: Not Appropriate Condition Multpiple Antipsychotics Used: No Problems: (1) Schizophrenia Status: Chronic Condition 1. encourage compliance. 2. await [facility]. 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
[2018-08-29] MEDS: MULTIVITAMINS TAB PO SCH (09:00)
[2018-08-29] MEDS: QUEtiapine FUM 25 MG TAB PO SCH (09:00)
[2018-08-29] MEDS: QUEtiapine FUM 100 MG TAB PO SCH (21:00)
--- NOTE | 2018-08-30 00:46 | NUR ---
At approx. 0000 hrs. observed pt come out of her room and sit in the dark in the adolescent area at the table. She has voiced no need at this time and is currently still sitting there at this time.
--- NOTE | 2018-08-30 03:10 | NUR ---
Pt has been pacing up and down the hallway for over an hour now (since approx. 0200 hrs.). She is whispering to herself and making hand gestures at times. Will not speak to staff.
[2018-08-30] MEDS: QUEtiapine FUM 25 MG TAB PO SCH ×2 (08:07→08:10)
[2018-08-30] MEDS: MULTIVITAMINS TAB PO SCH ×2 (08:07→08:10)
--- NOTE | 2018-08-30 14:35 | BHS Progress Note ---
[facility] - Subjective Progress Notes Subjective Patient talkative today in hallway, greeting this provider with an active smile saying "Hi". Patient notably not taking seroquel, and sleeping little last PM, but remaining overall cooperative on the unit, and refraining from any physical aggression on the unit. Patient appears to be communicating with self at times, but does not seem to be in distress regarding this. Appetite good, intermittent consumption of seroquel. No other concerns today. Suicidal Ideation: None Homicidal Ideation: Ongoing [facility] - Objective Physical Exam Vital Signs Vital Signs Date Time Temp Pulse Resp B/P (MAP) Pulse Ox O2 Delivery O2 Flow Rate FiO2 08/29/18 09:02 18 08/28/18 08:32 99.3 78 117/72 (87) 97 Room Air Muscle Strength and Tone: WNL Gait and Station: Steady [facility] Medications Reviewed: Side Effects, Benefits of Medication, Risks Allergies Reviewed: Yes Mental Status Exam General Appearance: Casual, Well Groomed; No Good Eye Contact, No Cooperative, No Polite, No Good Interaction, No Psychomotor Agitation, No Psychomotor Retardation; Bizarre Mannerisms (at times) Speech: No Clear, No Spontaneous, No Normal Rate, No Normal Rhythm, No Normal Volume, No Normal Tone, No Garbled, No Rambling, No Inappropriate; Other (Refusing to engage w/team members, mostly, avoids engagement in conversation today w/this provider, no interaction w/staff ) Mood: No Euthymic; Other (variable) Affect: No Full and Appropriate, No Calm, No Withdrawn, No Tearful, No Anxious, No Agitated Thought Process: Flight of Ideas (likely present) Thought Content: No Suicidal Ideation; Homicidal Ideation (towards "blacks and asians" since admit), Auditory Halllucinations (likely present); No Visual Hallucinations, No Thought Broadcasting, No Ideas of Reference Sensorium: Clear Cognition: Alert & Oriented-Person, Alert & Oriented-Place; No Alert & Oriented-Time, No Esfez-Ywssmopy-Zojxbtnxm Memory: Immediate, Recent, Remote Intelligence: Average Insight Judgment: Poor (limited at this time. ) [facility] Assessment and Plan Cyqy-zw-Vcjx Encounter Date: Aug 30, 2018 Etva-cg-Wzyy Encounter Time: 12:30 [facility] Plan: Necessary Precautions, Individual/Group Therapy, Admin/Titrate Meds, Educate Patient Tobacco Medications: Not Appropriate Condition Multpiple Antipsychotics Used: No Problems: (1) Schizophrenia Status: Chronic Condition 1. continue treatment. 2. encourage compliance 3. await [facility]. 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
[2018-08-30 15:55] VITALS: BP 122/88
[2018-08-30] MEDS: QUEtiapine FUM 100 MG TAB PO SCH (20:00)
[2018-08-31] MEDS: QUEtiapine FUM 25 MG TAB PO SCH (09:00)
[2018-08-31] MEDS: MULTIVITAMINS TAB PO SCH (09:00)
--- NOTE | 2018-08-31 13:32 | BHS Progress Note ---
[facility] - Subjective Progress Notes Subjective Patient refusing medication again last PM. and subsequently sleeping less, but overall remaining cooperative on the unit. Patient pretending to be asleep at times when interviewed, and noted to be checking doors on the unit today. No other concerns, appetite good. Suicidal Ideation: None Homicidal Ideation: Ongoing [facility] - Objective Physical Exam Vital Signs Vital Signs Date Time Temp Pulse Resp B/P (MAP) Pulse Ox O2 Delivery O2 Flow Rate FiO2 08/30/18 15:55 98.4 88 122/88 (99) 97 Room Air 08/29/18 09:02 18 Muscle Strength and Tone: WNL Gait and Station: Steady [facility] Medications Reviewed: Side Effects, Benefits of Medication, Risks Allergies Reviewed: Yes Mental Status Exam General Appearance: Casual, Well Groomed; No Good Eye Contact, No Cooperative, No Polite, No Good Interaction, No Psychomotor Agitation, No Psychomotor Retardation; Bizarre Mannerisms (at times) Speech: No Clear, No Spontaneous, No Normal Rate, No Normal Rhythm, No Normal Volume, No Normal Tone, No Garbled, No Rambling, No Inappropriate; Other (Refusing to engage w/team members, mostly, avoids engagement in conversation today w/this provider, no interaction w/staff ) Mood: No Euthymic; Other (variable) Affect: No Full and Appropriate, No Calm, No Withdrawn, No Tearful, No Anxious, No Agitated Thought Process: Flight of Ideas (likely present) Thought Content: No Suicidal Ideation; Homicidal Ideation (towards "blacks and asians" since admit), Auditory Halllucinations (likely present); No Visual Hallucinations, No Thought Broadcasting, No Ideas of Reference Sensorium: Clear Cognition: Alert & Oriented-Person, Alert & Oriented-Place; No Alert & Oriented-Time, No Odeth-Pusdyecq-Ltcjhwjzp Memory: Immediate, Recent, Remote Intelligence: Average Insight Judgment: Poor (limited at this time. ) [facility] Assessment and Plan Grhg-ln-Lqty Encounter Date: Aug 31, 2018 Nkxd-ap-Zbhn Encounter Time: 13:00 [facility] Plan: Necessary Precautions, Individual/Group Therapy, Admin/Titrate Meds, Educate Patient Tobacco Medications: Not Appropriate Condition Multpiple Antipsychotics Used: No Problems: (1) Schizophrenia Status: Chronic Condition 1. continue treatment. 2. await [facility]. 3. encourage medication compliance. 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
[2018-08-31] MEDS: QUEtiapine FUM 100 MG TAB PO SCH (21:00)
--- NOTE | 2018-08-31 21:56 | NUR ---
Pt walked by the desk and called the staff "Myron", the went into the dining room and then the Pt came to the desk demanding a cup, when asked to be polite the patient got angry at the she then said that she didn't have to be polite because she is filing a complaint against us. This tech told the pt that she has every right to file a complaint, but she would have to be polite to get a cup. she then dumped out the candy dish and filled it up with coffee. At 2215 the RN told her that the TV room was closing, the patient then came to the desk demanding a manilla envelope because the complaint letter is too big to put in the envelope that was given to her. This tech told the patient that was the only envelope that we have at this time. The patient then said that she will be calling the furnace tapper, this tech told the patient that it was time for bed, the patient then said that she was going to do whatever she wants and that she will call the furnace tapper in the morning.
--- NOTE | 2018-08-31 22:18 | NUR ---
Pt. asked for information to access an outside advocate, @ 1900. This nurse notified the Obstetrics Gynecology Md who said she would get the information for her in the morning when the office was open. This nurse also notified the intensive care unit registered nurse who also said the therapist could get her that information in morning. Pt. asked for paper to write a letter to [facility]. She was given multiple sheets of paper and sat at the table writing for several hours. She was offered a snack as wellas her nightly dose of Seroquel, pt. refused both. @0 pt. walked by the desk and called this nurse a "bitch then engaged in an argument with tech (see note) . Pt. went to the TV room watched until closing time at 1015 when this nurse told her was time to close down. Pt. stated "I'll fuckin thank you!" This nurse ignored the comment. Pt. is currently in her room, resting.
[2018-09-01] MEDS: QUEtiapine FUM 25 MG TAB PO SCH (08:32)
[2018-09-01] MEDS: MULTIVITAMINS TAB PO SCH (08:32)
--- NOTE | 2018-09-01 11:28 | BHS Progress Note ---
[facility] - Subjective Progress Notes Subjective Patient continues to recently consistently refuse Seroquel at night. Appetite good , some recent agitation, no physical aggression towards staff. No other changes Suicidal Ideation: None Homicidal Ideation: Ongoing [facility] - Objective Physical Exam Vital Signs Vital Signs Date Time Temp Pulse Resp B/P (MAP) Pulse Ox O2 Delivery O2 Flow Rate FiO2 08/30/18 15:55 98.4 88 122/88 (99) 97 Room Air 08/29/18 09:02 18 Muscle Strength and Tone: WNL Gait and Station: Steady [facility] Medications Reviewed: Side Effects, Benefits of Medication, Risks Allergies Reviewed: Yes Mental Status Exam General Appearance: Casual, Well Groomed; No Good Eye Contact, No Cooperative, No Polite, No Good Interaction, No Psychomotor Agitation, No Psychomotor Retardation; Bizarre Mannerisms (at times) Speech: No Clear, No Spontaneous, No Normal Rate, No Normal Rhythm, No Normal Volume, No Normal Tone, No Garbled, No Rambling, No Inappropriate; Other (Refusing to engage w/team members, mostly, avoids engagement in conversation today w/this provider, no interaction w/staff ) Mood: No Euthymic; Other (variable) Affect: No Full and Appropriate, No Calm, No Withdrawn, No Tearful, No Anxious, No Agitated Thought Process: Flight of Ideas (likely present) Thought Content: No Suicidal Ideation; Homicidal Ideation (towards "blacks and asians" since admit), Auditory Halllucinations (likely present); No Visual Hallucinations, No Thought Broadcasting, No Ideas of Reference Sensorium: Clear Cognition: Alert & Oriented-Person, Alert & Oriented-Place; No Alert & Oriented-Time, No Ybene-Ptvgsmut-Mkiifnizv Memory: Immediate, Recent, Remote Intelligence: Average Insight Judgment: Poor (limited at this time. ) [facility] Assessment and Plan Gbsk-mz-Ktkn Encounter Date: Sep 01, 2018 Ozzv-aa-Wbbe Encounter Time: 12:00 [facility] Plan: Necessary Precautions, Individual/Group Therapy, Admin/Titrate Meds, Educate Patient Tobacco Medications: Not Appropriate Condition Multpiple Antipsychotics Used: No Problems: (1) Schizophrenia Status: Chronic Condition 1. continue treatment. 2. await [facility]. 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
[2018-09-01] MEDS ORDERED: [UNRECOGNIZED DRUG - OTHER] PO SCH (12:00)
[2018-09-01] MEDS: [UNRECOGNIZED DRUG - OTHER] PO SCH (17:00)
[2018-09-01] MEDS: QUEtiapine FUM 100 MG TAB PO SCH (21:00)
[2018-09-02] MEDS: [UNRECOGNIZED DRUG - OTHER] PO SCH ×3 (08:33→17:15)
[2018-09-02] MEDS: MULTIVITAMINS TAB PO SCH (08:43)
[2018-09-02] MEDS: QUEtiapine FUM 25 MG TAB PO SCH (08:43)
--- NOTE | 2018-09-02 10:46 | BHS Progress Note ---
[facility] - Subjective Progress Notes Subjective This tag writer and therapist attempted to talk to patient while she was seated looking at a magazine at table. She did not make eye contact nor attempt to answer our inquiries about her well being or needs. She continued to look at the magazine. She expressed no needs however was encouraged to notify staff if needs arise. Suicidal Ideation: None Homicidal Ideation: Ongoing [facility] - Objective Physical Exam Muscle Strength and Tone: WNL Gait and Station: Steady [facility] Medications Reviewed: Side Effects, Benefits of Medication, Risks Allergies Reviewed: Yes Mental Status Exam General Appearance: Casual, Well Groomed; No Good Eye Contact, No Cooperative, No Polite, No Good Interaction, No Psychomotor Agitation, No Psychomotor Retardation; Bizarre Mannerisms (at times) Speech: No Clear, No Spontaneous, No Normal Rate, No Normal Rhythm, No Normal Volume, No Normal Tone, No Garbled, No Rambling, No Inappropriate; Other (Refusing to engage w/team members, mostly, avoids engagement in conversation today w/this provider, no interaction w/staff ) Mood: No Euthymic; Other (variable) Affect: No Full and Appropriate, No Calm, No Withdrawn, No Tearful, No Anxious, No Agitated Thought Process: Flight of Ideas (likely present) Thought Content: No Suicidal Ideation; Homicidal Ideation (towards "blacks and asians" since admit), Auditory Halllucinations (likely present); No Visual Hallucinations, No Thought Broadcasting, No Ideas of Reference Sensorium: Clear (difficult to assess as she is not answering questions this am) Cognition: Alert & Oriented-Person, Alert & Oriented-Place; No Alert & Oriented-Time, No Hgnwe-Lsaoigsa-Tupzymvby Memory: Immediate, Recent, Remote Intelligence: Average Insight Judgment: Poor (limited at this time. ) [facility] Assessment and Plan Pubd-pe-Doll Encounter Date: Sep 02, 2018 Ivfo-qp-Yvng Encounter Time: 09:30 [facility] Plan: Necessary Precautions, Individual/Group Therapy, Admin/Titrate Meds, Educate Patient Tobacco Medications: Not Appropriate Condition Multpiple Antipsychotics Used: No Problems: (1) Schizophrenia Status: Chronic Condition Client declined to acknowledge the treatment team's attempt to engage her this morning. No needs expressed. She was seated quietly at a table looking at a magazine and made no attempt at engaging with us as we spoke to her. Per RN client refused am Seroquel. She did eat a portion of an egg with Depakote sprinkles. Will continue to assess and await for [facility] transfer. No medication changes today. 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
[2018-09-02] MEDS: QUEtiapine FUM 100 MG TAB PO SCH (21:00)
[2018-09-03] MEDS: [UNRECOGNIZED DRUG - OTHER] PO SCH ×3 (08:34→17:13)
[2018-09-03] MEDS: QUEtiapine FUM 25 MG TAB PO SCH (08:35)
[2018-09-03] MEDS: MULTIVITAMINS TAB PO SCH (08:35)
--- NOTE | 2018-09-03 11:35 | BHS Progress Note ---
[facility] - Subjective Progress Notes Subjective Attempted to engage with patient by knocking on her patient door. She subsequently came out of the room and walked past justowriter operator without acknowledgement. She declined further attempt to engage verbally. Suicidal Ideation: None Homicidal Ideation: Ongoing (she has not redacted previous generalized HI statements) [facility] - Objective Physical Exam Vital Signs Vital Signs Date Time Temp Pulse Resp B/P (MAP) Pulse Ox O2 Delivery O2 Flow Rate FiO2 08/30/18 15:55 98.4 88 122/88 (99) 97 Room Air Muscle Strength and Tone: WNL Gait and Station: Steady S Medications Reviewed: Side Effects, Benefits of Medication, Risks Allergies Reviewed: Yes Mental Status Exam General Appearance: Casual, Well Groomed; No Good Eye Contact, No Cooperative, No Polite, No Good Interaction, No Psychomotor Agitation, No Psychomotor Retardation; Bizarre Mannerisms (at times) Speech: No Clear, No Spontaneous, No Normal Rate, No Normal Rhythm, No Normal Volume, No Normal Tone, No Garbled, No Rambling, No Inappropriate; Other (Refusing to engage w/team members, mostly, avoids engagement in conversation today w/this provider, no interaction w/staff ) Mood: No Euthymic; Other (variable) Affect: No Full and Appropriate, No Calm, No Withdrawn, No Tearful, No Anxious, No Agitated Thought Process: Flight of Ideas (likely present) Thought Content: No Suicidal Ideation; Homicidal Ideation (towards "blacks and asians" since admit), Auditory Halllucinations (likely present); No Visual Hallucinations, No Thought Broadcasting, No Ideas of Reference Sensorium: Clear (difficult to assess as she is not answering questions this am) Cognition: Alert & Oriented-Person, Alert & Oriented-Place; No Alert & Oriented-Time, No Yjwkk-Uedjfnyg-Njjgxshmk Memory: Immediate, Recent, Remote Intelligence: Average Insight Judgment: Poor (limited at this time. ) [facility] Assessment and Plan Lrjj-ri-Ugyd Encounter Date: Sep 03, 2018 Cogb-ok-Unou Encounter Time: 10:15 [facility] Plan: Necessary Precautions, Individual/Group Therapy, Admin/Titrate Meds, Educate Patient Tobacco Medications: Not Appropriate Condition Multpiple Antipsychotics Used: No Problems: (1) Schizophrenia Status: Chronic Condition Client again does not engage with this justowriter operator when attempts are made. She again refused Seroquel however is eating food with Depakote sprinkles. PLAN: No medication changes. Continue to monitor for safety per precautions. Client is currently on waitlist for transfer to the [facility]. 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
[2018-09-03 13:50] VITALS: BP 102/62
[2018-09-03] MEDS: QUEtiapine FUM 100 MG TAB PO SCH (21:00)
[2018-09-04] MEDS: [UNRECOGNIZED DRUG - OTHER] PO SCH ×3 (09:00→18:10)
[2018-09-04] MEDS: QUEtiapine FUM 25 MG TAB PO SCH (09:00)
[2018-09-04] MEDS: MULTIVITAMINS TAB PO SCH (09:00)
--- NOTE | 2018-09-04 09:04 | NUR ---
Pt refused to eat/drink breakfast this morning. No Depakote Sprinkles administered.
--- NOTE | 2018-09-04 11:50 | BHS Progress Note ---
[facility] - Subjective Progress Notes Subjective Patient remaining cooperative today, and notably remaining in group, no physical aggression toward staff or other patients. but refusing to communicate individually. Will continue depakote sprinkles and seroquel, with much variability inn actual consumption. Sleep appears to be grossly intact with what appears to be non-terrifying psychotic symptoms at times. No other concerns . Suicidal Ideation: None Homicidal Ideation: Ongoing [facility] - Objective Physical Exam Vital Signs Vital Signs Date Time Temp Pulse Resp B/P (MAP) Pulse Ox O2 Delivery O2 Flow Rate FiO2 09/03/18 13:50 98.3 72 16 102/62 (75) 99 Room Air Muscle Strength and Tone: WNL Gait and Station: Steady [facility] Medications Reviewed: Side Effects, Benefits of Medication, Risks Allergies Reviewed: Yes Mental Status Exam General Appearance: Casual, Well Groomed; No Good Eye Contact, No Cooperative, No Polite, No Good Interaction, No Psychomotor Agitation, No Psychomotor Retardation; Bizarre Mannerisms (at times) Speech: No Clear, No Spontaneous, No Normal Rate, No Normal Rhythm, No Normal Volume, No Normal Tone, No Garbled, No Rambling, No Inappropriate; Other (Refusing to engage w/team members, mostly, avoids engagement in conversation today w/this provider, no interaction w/staff ) Mood: No Euthymic; Other (variable) Affect: No Full and Appropriate, No Calm, No Withdrawn, No Tearful, No Anxious, No Agitated Thought Process: Flight of Ideas (likely present) Thought Content: No Suicidal Ideation; Homicidal Ideation (towards "blacks and asians" since admit), Auditory Halllucinations (likely present); No Visual Hallucinations, No Thought Broadcasting, No Ideas of Reference Sensorium: Clear (difficult to assess as she is not answering questions this am) Cognition: Alert & Oriented-Person, Alert & Oriented-Place; No Alert & Oriented-Time, No Cinfu-Miqsgeek-Njjxepipm Memory: Immediate, Recent, Remote Intelligence: Average Insight Judgment: Poor (limited at this time. ) [facility] Assessment and Plan Pipv-zg-Ibdn Encounter Date: Sep 04, 2018 Ibkz-jd-Ykwz Encounter Time: 11:30 [facility] Plan: Necessary Precautions, Individual/Group Therapy, Admin/Titrate Meds, Educate Patient Tobacco Medications: Not Appropriate Condition Multpiple Antipsychotics Used: No Problems: (1) Schizophrenia Optional Permanent Comment: verses shizoaffective disorder. Last Edited By: Lui Merlos on Sep 04, 2018 11:47 Status: Chronic Condition 1. continue treatment. 2. no medication changes. 3. await [facility]. 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
[2018-09-04] MEDS: QUEtiapine FUM 100 MG TAB PO SCH (21:00)
[2018-09-05] MEDS: MULTIVITAMINS TAB PO SCH (09:00)
[2018-09-05] MEDS: [UNRECOGNIZED DRUG - OTHER] PO SCH ×3 (09:00→17:11)
[2018-09-05] MEDS: QUEtiapine FUM 25 MG TAB PO SCH (09:00)
--- NOTE | 2018-09-05 09:09 | NUR ---
Pt refused to eat/drink breakfast this morning. No Depakote Sprinkles administered. Addendum: 09/05/18 at 1302 by RYNE DENG RN Pt awoke and began eating breakfast and drank her coffee (which had the Depakote Sprinkles) at approximately 0945 this morning.
--- NOTE | 2018-09-05 11:03 | BHS Progress Note ---
[facility] - Subjective Progress Notes Subjective Patient still likely having violent thoughts towards "Blacks and Asians" , but unable to fully assess, as patient is once again refusing to communicate with this provider today. Patient notably pretending to be asleep in bed, and refusing to communicate, then noticed later to be communicating effectively with another patient at breakfast table, displaying a wide ranging affect. Will have lab work in the AM. Suicidal Ideation: None Homicidal Ideation: Ongoing [facility] - Objective Physical Exam Vital Signs Vital Signs Date Time Temp Pulse Resp B/P (MAP) Pulse Ox O2 Delivery O2 Flow Rate FiO2 09/03/18 13:50 98.3 72 16 102/62 (75) 99 Room Air Muscle Strength and Tone: WNL Gait and Station: Steady S Medications Reviewed: Side Effects, Benefits of Medication, Risks Allergies Reviewed: Yes Mental Status Exam General Appearance: Casual, Well Groomed; No Good Eye Contact, No Cooperative, No Polite, No Good Interaction, No Psychomotor Agitation, No Psychomotor Retardation; Bizarre Mannerisms (at times) Speech: No Clear, No Spontaneous, No Normal Rate, No Normal Rhythm, No Normal Volume, No Normal Tone, No Garbled, No Rambling, No Inappropriate; Other (Refusing to engage w/team members, mostly, avoids engagement in conversation today w/this provider, no interaction w/staff ) Mood: No Euthymic; Other (variable) Affect: No Full and Appropriate, No Calm, No Withdrawn, No Tearful, No Anxious, No Agitated Thought Process: Flight of Ideas (likely present) Thought Content: No Suicidal Ideation; Homicidal Ideation (towards "blacks and asians" since admit), Auditory Halllucinations (likely present); No Visual Hallucinations, No Thought Broadcasting, No Ideas of Reference Sensorium: Clear (difficult to assess as she is not answering questions this am) Cognition: Alert & Oriented-Person, Alert & Oriented-Place; No Alert & Oriented-Time, No Yscnl-Bdnbiopc-Oqvujyinz Memory: Immediate, Recent, Remote Intelligence: Average Insight Judgment: Poor (limited at this time. ) [facility] Assessment and Plan Rdjb-wk-Qfps Encounter Date: Sep 05, 2018 Yceq-mu-Xbnn Encounter Time: 10:30 [facility] Plan: Necessary Precautions, Individual/Group Therapy, Admin/Titrate Meds, Educate Patient Tobacco Medications: Not Appropriate Condition Multpiple Antipsychotics Used: No Problems: (1) Schizophrenia Optional Permanent Comment: verses shizoaffective disorder. Last Edited By: Lui Merlos on Sep 04, 2018 11:47 Status: Chronic Condition 1. continue to encourage compliance. 2. labs in AM. 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
[2018-09-06] MEDS: QUEtiapine FUM 100 MG TAB PO SCH ×2 (00:27→20:31)
[2018-09-06] MEDS: [UNRECOGNIZED DRUG - OTHER] PO SCH ×3 (08:25→17:10)
[2018-09-06] MEDS: MULTIVITAMINS TAB PO SCH (08:26)
[2018-09-06] MEDS: QUEtiapine FUM 25 MG TAB PO SCH (08:26)
[2018-09-06 08:50] LABS: PLATELET COUNT, AUTOMATED 345 K/uL (150-450)
--- NOTE | 2018-09-06 09:10 | BHS Progress Note ---
S - Subjective Progress Notes Subjective Patient initially pretending to be asleep again during routine lab draw this AM, but later seen to be interacting well with another patient, and animated, and cooperatively agreed to lab draw with return of laboratory manager. Patient notably wanting to take her Seroquel last night on her own, and continues with depakote sprinkles. Labs pending this AM. Patient notably now seemingly interested in attending groups as well. No physical aggression towards staff or other patients noted. No para-suicidal behaviors noted. Will continue treatment, review lab work. Suicidal Ideation: None Homicidal Ideation: Ongoing [facility] - Objective Physical Exam Vital Signs Vital Signs Date Time Temp Pulse Resp B/P (MAP) Pulse Ox O2 Delivery O2 Flow Rate FiO2 09/03/18 13:50 98.3 72 16 102/62 (75) 99 Room Air Hematology Test 09/06/18 08:27 White Blood Count 4.8 k/uL (4.5-11.0) Red Blood Count 4.25 M/uL (4.17-5.56) Hemoglobin 11.3 g/dL (12.0-16.0) L Hematocrit 34.5 % (34.0-47.0) Mean Corpuscular Volume 81.2 fL (80.0-96.0) Mean Corpuscular Hemoglobin 26.5 pg (26.0-33.0) Mean Corpuscular Hemoglobin Concent 32.7 g/dL (32.0-36.0) Red Cell Distribution Width 17.1 % (11.5-14.5) H Platelet Count 345 K/uL (150-450) Mean Platelet Volume 7.3 fL (7.2-11.1) Neutrophils (%) (Auto) 32.4 % (39.4-72.5) L Lymphocytes (%) (Auto) 53.1 % (17.6-49.6) H Monocytes (%) (Auto) 11.9 % (4.1-12.4) Eosinophils (%) (Auto) 1.7 % (0.4-6.7) Basophils (%) (Auto) 0.9 % (0.3-1.4) Nucleated RBC Relative Count (auto) 0.1 /100WBC Neutrophils # (Auto) 1.6 K/uL (2.0-7.4) L Lymphocytes # (Auto) 2.6 K/uL (1.3-3.6) Monocytes # (Auto) 0.6 K/uL (0.3-1.0) Eosinophils # (Auto) 0.1 K/uL (0.0-0.5) Basophils # (Auto) 0.0 K/uL (0.0-0.1) Nucleated RBC Absolute Count (auto) 0.00 K/uL Chemistry Test 09/06/18 08:27 Toxicology Test 09/06/18 08:27 Muscle Strength and Tone: WNL Gait and Station: Steady [facility] Medications Reviewed: Side Effects, Benefits of Medication, Risks Allergies Reviewed: Yes Mental Status Exam General Appearance: Casual, Well Groomed; No Good Eye Contact, No Cooperative, No Polite, No Good Interaction, No Psychomotor Agitation, No Psychomotor Retarda tion; Bizarre Mannerisms (at times) Speech: No Clear, No Spontaneous, No Normal Rate, No Normal Rhythm, No Normal Volume, No Normal Tone, No Garbled, No Rambling, No Inappropriate; Other (Refusing to engage w/team members, mostly, avoids engagement in conversation today w/this provider, no interaction w/staff ) Mood: No Euthymic; Other (variable) Affect: No Full and Appropriate, No Calm, No Withdrawn, No Tearful, No Anxious, No Agitated Thought Process: Flight of Ideas (likely present) Thought Content: No Suicidal Ideation; Homicidal Ideation (towards "blacks and asians" since admit), Auditory Halllucinations (likely present); No Visual Hallucinations, No Thought Broadcasting, No Ideas of Reference Sensorium: Clear (difficult to assess as she is not answering questions this am) Cognition: Alert & Oriented-Person, Alert & Oriented-Place; No Alert & Oriented-Time, No Mlype-Phvergto-Ykbmjxipe Memory: Immediate, Recent, Remote Intelligence: Average Insight Judgment: Poor (limited at this time. ) Result Diagram: 09/06/18 0827 [facility] Assessment and Plan [id number]-[id number] Encounter Date: Sep 06, 2018 Xngc-kp-Nasr Encounter Time: 10:00 [facility] Plan: Necessary Precautions, Individual/Group Therapy, Admin/Titrate Meds, Educate Patient Tobacco Medications: Not Appropriate Condition Multpiple Antipsychotics Used: No Problems: (1) Schizophrenia Optional Permanent Comment: verses shizoaffective disorder. Last Edited By: Lui Merlos on Sep 04, 2018 11:47 Status: Chronic Condition 1. continue treatment. 2. await [facility]. 3. review lab work. 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
[2018-09-06 10:46] LABS: LDL CHOLESTEROL 83 mg/dl
--- NOTE | 2018-09-06 19:38 | NUR ---
Pt. calling all the personal investment adviser in the phone book asking for help with her case. When we try to explain what a committment to the hospital entails she gets angry. Pt. was allowed to use the phone as long as she needed to make these calls. Pt. was also seen writing numbers on her hand when offered a piece of paper, she states "oh now you offer me paper!" This nurse told her she welcome to paper or help with anything else she needed patient refuses to respond, walks away.
[2018-09-07] MEDS: [UNRECOGNIZED DRUG - OTHER] PO SCH ×3 (08:13→16:49)
[2018-09-07] MEDS: QUEtiapine FUM 25 MG TAB PO SCH (08:30)
[2018-09-07] MEDS: MULTIVITAMINS TAB PO SCH (08:30)
--- NOTE | 2018-09-07 13:09 | BHS Progress Note ---
[facility] - Subjective Progress Notes Subjective Patient refusing seroquel last PM, and this AM. Notably calling multiple law firms and even calling police to state she robbed a bank in [place], requiring police to interview her. Patient refusing contact with this provider today. Suicidal Ideation: None Homicidal Ideation: Ongoing [facility] - Objective Physical Exam Vital Signs Hematology Test 09/06/18 08:27 White Blood Count 4.8 k/uL (4.5-11.0) Red Blood Count 4.25 M/uL (4.17-5.56) Hemoglobin 11.3 g/dL (12.0-16.0) L Hematocrit 34.5 % (34.0-47.0) Mean Corpuscular Volume 81.2 fL (80.0-96.0) Mean Corpuscular Hemoglobin 26.5 pg (26.0-33.0) Mean Corpuscular Hemoglobin Concent 32.7 g/dL (32.0-36.0) Red Cell Distribution Width 17.1 % (11.5-14.5) H Platelet Count 345 K/uL (150-450) Mean Platelet Volume 7.3 fL (7.2-11.1) Neutrophils (%) (Auto) 32.4 % (39.4-72.5) L Lymphocytes (%) (Auto) 53.1 % (17.6-49.6) H Monocytes (%) (Auto) 11.9 % (4.1-12.4) Eosinophils (%) (Auto) 1.7 % (0.4-6.7) Basophils (%) (Auto) 0.9 % (0.3-1.4) Nucleated RBC Relative Count (auto) 0.1 /100WBC Neutrophils # (Auto) 1.6 K/uL (2.0-7.4) L Lymphocytes # (Auto) 2.6 K/uL (1.3-3.6) Monocytes # (Auto) 0.6 K/uL (0.3-1.0) Eosinophils # (Auto) 0.1 K/uL (0.0-0.5) Basophils # (Auto) 0.0 K/uL (0.0-0.1) Nucleated RBC Absolute Count (auto) 0.00 K/uL Chemistry Test 09/06/18 08:27 Sodium Level 141 mmol/L (137-145) Potassium Level 4.3 mmol/L (3.5-5.0) Chloride Level 108 mmol/L (98-107) Carbon Dioxide Level 24 mmol/L (22-31) Blood Urea Nitrogen 10 mg/dl (7-18) Creatinine 0.70 mg/dl (0.52-1.04) Glomerular Filtration Rate Calc > 60.0 Random Glucose 79 mg/dl (75-110) Calcium Level 8.9 mg/dl (8.4-10.2) Total Bilirubin 0.3 mg/dl (0.2-1.3) Aspartate Amino Transf (AST/SGOT) 19 U/L (0-35) Alanine Aminotransferase (ALT/SGPT) 25 U/L (0-56) Alkaline Phosphatase 60 U/L (0-126) Total Protein 6.9 g/dl (6.3-8.2) Albumin 3.6 g/dl (3.5-5.0) Triglycerides Level 62 mg/dl (0-250) Cholesterol Level 162 mg/dl (75-200) LDL Cholesterol 83 mg/dl VLDL Cholesterol 12 mg/dl HDL Cholesterol 67 mg/dl Percent HDL Cholesterol 41.0 % Cholesterol Ratio (LDL/HDL) 1.23 Cholesterol/HDL Ratio 2.4 Toxicology Test 09/06/18 08:27 Valproic Acid (Depakene) Level 32.4 ug/ml Vital Signs Date Time Temp Pulse Resp B/P (MAP) Pulse Ox O2 Delivery O2 Flow Rate FiO2 09/03/18 13:50 98.3 72 16 102/62 (75) 99 Room Air Muscle Strength and Tone: WNL Gait and Station: Steady [facility] Medications Reviewed: Side Effects, Benefits of Medication, Risks Allergies Reviewed: Yes Mental Status Exam General Appearance: Casual, Well Groomed; No Good Eye Contact, No Cooperative, No Polite, No Good Interaction, No Psychomotor Agitation, No Psychomotor Retardation; Bizarre Mannerisms (at times) Speech: No Clear, No Spontaneous, No Normal Rate, No Normal Rhythm, No Normal Volume, No Normal Tone, No Garbled, No Rambling, No Inappropriate; Other (Refus ing to engage w/team members, mostly, avoids engagement in conversation today w/this provider, no interaction w/staff ) Mood: No Euthymic; Other (variable) Affect: No Full and Appropriate, No Calm, No Withdrawn, No Tearful, No Anxious, No Agitated Thought Process: Flight of Ideas (likely present) Thought Content: No Suicidal Ideation; Homicidal Ideation (towards "blacks and asians" since admit), Auditory Halllucinations (likely present); No Visual Hallucinations, No Thought Broadcasting, No Ideas of Reference Sensorium: Clear (difficult to assess as she is not answering questions this am) Cognition: Alert & Oriented-Person, Alert & Oriented-Place; No Alert & O riented-Time, No Zfkun-Clwyvtlc-Oixzktbbl Memory: Immediate, Recent, Remote Intelligence: Average Insight Judgment: Poor (limited at this time. ) Result Diagram: 09/06/1882609/06/18826 [facility] Assessment and Plan Jmfn-du-[id number] Encounter Date: Sep 07, 2018 Pdfo-zp-Tqdo Encounter Time: 13:00 [facility] Plan: Necessary Precautions, Individual/Group Therapy, Admin/Titrate Meds, Educate Patient Tobacco Medications: Not Appropriate Condition Multpiple Antipsychotics Used: No Problems: (1) Schizophrenia Optional Permanent Comment: verses shizoaffective disorder. Last Edited By: Lui Merlos on Sep 04, 2018 11:47 Status: Chronic Condition 1. continue treatment. 2. encourage medication compliance. 3. 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
[2018-09-07] MEDS: QUEtiapine FUM 100 MG TAB PO SCH (21:00)
[2018-09-08] MEDS: [UNRECOGNIZED DRUG - OTHER] PO SCH ×3 (08:20→17:00)
[2018-09-08] MEDS: QUEtiapine FUM 25 MG TAB PO SCH ×2 (08:20→11:52)
[2018-09-08] MEDS: MULTIVITAMINS TAB PO SCH (08:20)
--- NOTE | 2018-09-08 13:12 | BHS Progress Note ---
[facility] - Subjective Progress Notes Subjective Patient noted to be feigning sleep again today. Encouraged by this provider to take Seroquel, which she later did. Patient remains on Depakote sprinkles. Will continue to encourage compliance. No other concerns. Suicidal Ideation: None Homicidal Ideation: Ongoing [facility] - Objective Physical Exam Vital Signs Hematology Test 09/06/18 08:27 White Blood Count 4.8 k/uL (4.5-11.0) Red Blood Count 4.25 M/uL (4.17-5.56) Hemoglobin 11.3 g/dL (12.0-16.0) L Hematocrit 34.5 % (34.0-47.0) Mean Corpuscular Volume 81.2 fL (80.0-96.0) Mean Corpuscular Hemoglobin 26.5 pg (26.0-33.0) Mean Corpuscular Hemoglobin Concent 32.7 g/dL (32.0-36.0) Red Cell Distribution Width 17.1 % (11.5-14.5) H Platelet Count 345 K/uL (150-450) Mean Platelet Volume 7.3 fL (7.2-11.1) Neutrophils (%) (Auto) 32.4 % (39.4-72.5) L Lymphocytes (%) (Auto) 53.1 % (17.6-49.6) H Monocytes (%) (Auto) 11.9 % (4.1-12.4) Eosinophils (%) (Auto) 1.7 % (0.4-6.7) Basophils (%) (Auto) 0.9 % (0.3-1.4) Nucleated RBC Relative Count (auto) 0.1 /100WBC Neutrophils # (Auto) 1.6 K/uL (2.0-7.4) L Lymphocytes # (Auto) 2.6 K/uL (1.3-3.6) Monocytes # (Auto) 0.6 K/uL (0.3-1.0) Eosinophils # (Auto) 0.1 K/uL (0.0-0.5) Basophils # (Auto) 0.0 K/uL (0.0-0.1) Nucleated RBC Absolute Count (auto) 0.00 K/uL Chemistry Test 09/06/18 08:27 Sodium Level 141 mmol/L (137-145) Potassium Level 4.3 mmol/L (3.5-5.0) Chloride Level 108 mmol/L (98-107) Carbon Dioxide Level 24 mmol/L (22-31) Blood Urea Nitrogen 10 mg/dl (7-18) Creatinine 0.70 mg/dl (0.52-1.04) Glomerular Filtration Rate Calc > 60.0 Random Glucose 79 mg/dl (75-110) Calcium Level 8.9 mg/dl (8.4-10.2) Total Bilirubin 0.3 mg/dl (0.2-1.3) Aspartate Amino Transf (AST/SGOT) 19 U/L (0-35) Alanine Aminotransferase (ALT/SGPT) 25 U/L (0-56) Alkaline Phosphatase 60 U/L (0-126) Total Protein 6.9 g/dl (6.3-8.2) Albumin 3.6 g/dl (3.5-5.0) Triglycerides Level 62 mg/dl (0-250) Cholesterol Level 162 mg/dl (75-200) LDL Cholesterol 83 mg/dl VLDL Cholesterol 12 mg/dl HDL Cholesterol 67 mg/dl Percent HDL Cholesterol 41.0 % Cholesterol Ratio (LDL/HDL) 1.23 Cholesterol/HDL Ratio 2.4 Toxicology Test 09/06/18 08:27 Valproic Acid (Depakene) Level 32.4 ug/ml Muscle Strength and Tone: WNL Gait and Station: Steady [facility] Medications Reviewed: Side Effects, Benefits of Medication, Risks Allergies Reviewed: Yes Mental Status Exam General Appearance: Casual, Well Groomed; No Good Eye Contact, No Cooperative, No Polite, No Good Interaction, No Psychomotor Agitation, No Psychomotor Retardation; Bizarre Mannerisms (at times) Speech: No Clear, No Spontaneous, No Normal Rate, No Normal Rhythm, No Normal Volume, No Normal Tone, No Garbled, No Rambling, No Inappropriate; Other (Refusing to engage w/team members, mostly, avoids engagement in conversation today w/this provider, no interaction w/staff ) Mood: No Euthymic; Other (variable) Affect: No Full and Appropriate, No Calm, No Withdrawn, No Tearful, No Anxious, No Agitated Thought Process: Flight of Ideas (likely present) Thought Content: No Suicidal Ideation; Homicidal Ideation (towards "blacks and asians" since admit), Auditory Halllucinations (likely present); No Visual Hallucinations, No Thought Broadcasting, No Ideas of Reference Sensorium: Clear (difficult to assess as she is not answering questions this am) Cognition: Alert & Oriented-Person, Alert & Oriented-Place; No Alert & Oriented-Time, No Yqova-Dyghgqxj-Vdiklsccc Memory: Immediate, Recent, Remote Intelligence: Average Insight Judgment: Poor (limited at this time. ) Result Diagram: 09/06/1882609/06/[address] [facility] Assessment and Plan Qqil-sy-Ykyh Encounter Date: Sep 08, 2018 Chdo-qa-Gglh Encounter Time: 13:[address] [facility] Plan: Necessary Precautions, Individual/Group Therapy, Admin/Titrate Meds, Educate Patient Tobacco Medications: Not Appropriate Condition Multpiple Antipsychotics Used: No Problems: (1) Schizophrenia Optional Permanent Comment: verses shizoaffective disorder. Last Edited By: Lui Merlos on Sep 04, 2018 11:47 Status: Chronic Condition 1. continue treatment. 2. encourage compliance. 3. await [facility]. 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
[2018-09-08] MEDS: QUEtiapine FUM 100 MG TAB PO SCH ×2 (21:07→22:35)
[2018-09-09] MEDS: [UNRECOGNIZED DRUG - OTHER] PO SCH ×3 (09:00→16:56)
[2018-09-09] MEDS: MULTIVITAMINS TAB PO SCH (09:00)
[2018-09-09] MEDS ORDERED: QUEtiapine FUM 25 MG TAB PO ONE (11:30)
[2018-09-09] MEDS: QUEtiapine FUM 100 MG TAB PO SCH (11:56)
--- NOTE | 2018-09-09 17:12 | BHS Progress Note ---
[facility] - Subjective Progress Notes Subjective Pt seen with team in Unit C, where she was escorted cooperatively yesterday afternoon after becoming escalated, threw her cup, toilet paper, took mattress off bed and threw it, later lay on wooden bed for a while. Initially refused meds last night and later took them. Then this morning, again refused meds but later took them. When we met she was lying on bed with no eye contact, but eyes open. She spoke with me fairly agreeably about superficial topics like her childhood in [place]. Still paranoid regarding blacks and Asians. She said she wants to leave the hospital and I told her she can't, but that if she takes her meds more regularly, and if we increase her dose of seroquel a bit, she is more likely to get to leave sooner. She agreed to increase seroquel to 100 mg q am and 250 mg q HS. Throughout afternoon she was isolated to her room, in bed, talking to herself almost constantly, rambling on about jobs, money, people trying to poison her food... But no further agitation. Suicidal Ideation: None Homicidal Ideation: None [facility] - Objective Physical Exam Vital Signs refused. Pt clinically stable. Muscle Strength and Tone: WNL Gait and Station: Steady [facility] Medications Reviewed: Side Effects, Benefits of Medication, Risks Allergies Reviewed: Yes Mental Status Exam General Appearance: Casual, Well Groomed; No Good Eye Contact, No Cooperative, No Polite, No Good Interaction, No Psychomotor Agitation, No Psychomotor Retardation; Bizarre Mannerisms (at times) Speech: No Clear, No Spontaneous, No Normal Rate, No Normal Rhythm, No Normal Volume, No Normal Tone, No Garbled, No Rambling, No Inappropriate; Other (a little more conversant today with me. Rambling on talking to herself all afternoon) Mood: No Euthymic; Other (variable) Affect: No Full and Appropriate, No Calm, No Withdrawn, No Tearful, No Anxious, No Agitated Thought Process: Flight of Ideas (likely present) Thought Content: No Suicidal Ideation; Homicidal Ideation (towards "blacks and asians" since admit), Auditory Halllucinations (likely present); No Visual Hallucinations, No Thought Broadcasting, No Ideas of Reference Sensorium: Clear (difficult to assess as she is not answering questions this am) Cognition: Alert & Oriented-Person, Alert & Oriented-Place; No Alert & Oriented-Time, No Tqmcz-Ruotvkmw-Knjcmledq Memory: Immediate, Recent, Remote Intelligence: Average Insight Judgment: Poor (limited at this time. ) Result Diagram: 09/06/1882609/06/1827 [facility] Assessment and Plan Bffv-jh-Ybfz Encounter Date: Sep 09, 2018 Ixdy-nx-Augp Encounter Time: 11:00 [facility] Plan: Necessary Precautions, Individual/Group Therapy, Admin/Titrate Meds, Educate Patient Tobacco Medications: Not Appropriate Condition Multpiple Antipsychotics Used: No Problems: (1) Schizophrenia Optional Permanent Comment: verses shizoaffective disorder. 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
[2018-09-09] MEDS ORDERED: QUEtiapine FUM 100 MG TAB PO SCH ×2 (21:00)
[2018-09-10] MEDS: QUEtiapine FUM 100 MG TAB PO SCH ×2 (08:05→20:48)
[2018-09-10] MEDS: [UNRECOGNIZED DRUG - OTHER] PO SCH ×3 (08:05→17:11)
[2018-09-10] MEDS: MULTIVITAMINS TAB PO SCH ×2 (08:05→08:52)
[2018-09-10] MEDS ORDERED: QUEtiapine FUM 25 MG TAB PO SCH (09:00)
--- NOTE | 2018-09-10 17:05 | BHS Progress Note ---
S - Subjective Progress Notes Subjective Pt seen in unit C with team. Pt is doing a little better today -- she was compliant with taking meds yesterday and today, yesterday she was talking to herself pretty much all day, but today she has not been doing that at all. Today she sat up, spoke with me, did make some eye contact-- not much but more. She says her goal is to get out of the hospital as soon as she can, and she remembers that yesterday we said that the way to do that is for her to take her meds faithfully. She is still paranoid, focused on "Asians and blacks, they are the people." She tolerated the increase in seroquel dose yesterday well, today she does not seem oversedated at all. Refused vistal signs this am, but denies feeling dizzy or unsteady on her feet when she gets up. She agreed to my suggestion that we increase seroquel one more time to total of 100 mg q AM, and 300 mg q HS. Suicidal Ideation: None Homicidal Ideation: None [facility] - Objective Physical Exam Vital Signs refused, pt clinically stable Muscle Strength and Tone: WNL Gait and Station: Steady [facility] Medications Reviewed: Side Effects, Benefits of Medication, Risks Allergies Reviewed: Yes Mental Status Exam General Appearance: Casual, Well Groomed; No Good Eye Contact, No Cooperative, No Polite, No Good Interaction, No Psychomotor Agitation, No Psychomotor Retardation; Other (withdrawn, does not seek any interaction with others) Speech: Clear, Spontaneous, Normal Rate, Normal Rhythm, Normal Volume, Normal Tone Mood: No Euthymic; Other (variable) Affect: No Full and Appropriate, No Calm, No Withdrawn, No Tearful, No Anxious, No Agitated; Other (bizarre laughter when talking about a "hot" professor she had in college) Thought Process: Other (circumstantial) Thought Content: No Suicidal Ideation; Homicidal Ideation (towards "blacks and asians" since admit), Auditory Halllucinations (likely present); No Visual Hallucinations, No Thought Broadcasting, No Ideas of Reference Sensorium: Clear (difficult to assess as she is not answering questions this am) Cognition: Alert & Oriented-Person, Alert & Oriented-Place; No Alert & Oriented-Time; Vxyqq-Uybttxcj-Sknhiaicu Memory: Immediate, Recent, Remote Intelligence: Average Insight Judgment: Poor (limited at this time. ) Result Diagram: 09/06/18 0827 09/06/18 0827 [facility] Assessment and Plan Zyxo-la-Uspp Encounter Date: Sep 10, 2018 Scsf-bd-Mwiq Encounter Time: 10:30 [facility] Plan: Necessary Precautions, Individual/Group Therapy, Admin/Titrate Meds, Educate Patient Tobacco Medications: Not Appropriate Condition Multpiple Antipsychotics Used: No Problems: (1) Schizophrenia Optional Permanent Comment: verses shizoaffective disorder. 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
[2018-09-11] MEDS: [UNRECOGNIZED DRUG - OTHER] PO SCH ×3 (07:48→17:03)
[2018-09-11] MEDS: QUEtiapine FUM 100 MG TAB PO SCH ×2 (08:57→20:19)
[2018-09-11] MEDS: MULTIVITAMINS TAB PO SCH (08:58)
[2018-09-11 11:46] VITALS: BP 102/62
[2018-09-11] MEDS ORDERED: QUEtiapine FUM 100 MG TAB PO ONE (12:35)
--- NOTE | 2018-09-11 14:16 | BHS Progress Note ---
[facility] - Subjective Progress Notes Subjective Patient notably refusing AM Seroquel, but then later requesting it. Upon entering her room, patient was laughing and appeared in good spirits, noted to be eating lunch appropriately today. Patient denies any concerns. Less private communications today. Will continue to encourage medication compliance. [facility]. Suicidal Ideation: None Homicidal Ideation: Ongoing [facility] - Objective Physical Exam Vital Signs Vital Signs Date Time Temp Pulse Resp B/P (MAP) Pulse Ox O2 Delivery O2 Flow Rate FiO2 09/11/18 11:46 Muscle Strength and Tone: WNL Gait and Station: Steady [facility] Medications Reviewed: Side Effects, Benefits of Medication, Risks Allergies Reviewed: Yes Mental Status Exam General Appearance: Casual, Well Groomed; No Good Eye Contact, No Cooperative, No Polite, No Good Interaction, No Psychomotor Agitation, No Psychomotor Retardation; Bizarre Mannerisms (at times) Speech: Clear, Spontaneous, Normal Rate, Normal Rhythm, Normal Volume, Normal Tone Mood: No Euthymic; Other (variable) Affect: Full and Appropriate, Calm; No Withdrawn, No Tearful, No Anxious, No Agitated; Other (highly variable mood and affect. ) Thought Process: Other (circumstantial) Thought Content: No Suicidal Ideation; Homicidal Ideation (towards "blacks and asians" since admit), Auditory Halllucinations (likely present); No Visual Hallucinations, No Thought Broadcasting, No Ideas of Reference Sensorium: Clear (difficult to assess as she is not answering questions this am) Cognition: Alert & Oriented-Person, Alert & Oriented-Place, Alert & Oriented- Time; No Cnlqa-Qusundff-Tucwczryf Memory: Immediate, Recent, Remote Intelligence: Average Insight Judgment: Poor (limited at this time. ) [facility] Assessment and Plan Javn-gc-Tive Encounter Date: Sep 11, 2018 Yhop-rp-Eziz Encounter Time: 12:30 [facility] Plan: Necessary Precautions, Individual/Group Therapy, Admin/Titrate Meds, Educate Patient Tobacco Medications: Not Appropriate Condition Multpiple Antipsychotics Used: No Problems: (1) Schizophrenia Optional Permanent Comment: verses shizoaffective disorder. Last Edited By: Lui Merlos on Sep 04, 2018 11:47 Status: Chronic Condition 1. encourage medication compliance. 2. await [facility]. 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
[2018-09-12] MEDS: [UNRECOGNIZED DRUG - OTHER] PO SCH ×3 (08:05→16:47)
[2018-09-12] MEDS: QUEtiapine FUM 100 MG TAB PO SCH ×2 (08:59→20:33)
[2018-09-12] MEDS: MULTIVITAMINS TAB PO SCH (08:59)
--- NOTE | 2018-09-12 09:04 | BHS Progress Note ---
[facility] - Subjective Progress Notes Subjective Patient notably accepting of increased dose of seroquel last PM, and today is wide awake and eating breakfast in her room. Patient would not elaborate on her intentions after breaking a CD on the unit. Patient laughing this AM, and making poor eye contact. Patient no longer calling random pocket maker and rejecting some return calls. Will continue to work toward transfer to [facility]. No medication changes today. Suicidal Ideation: None Homicidal Ideation: Ongoing [facility] - Objective Physical Exam Vital Signs Vital Signs Date Time Temp Pulse Resp B/P (MAP) Pulse Ox O2 Delivery O2 Flow Rate FiO2 09/11/18 11:46 Vital Signs Date Time Temp Pulse Resp B/P (MAP) Pulse Ox O2 Delivery O2 Flow Rate FiO2 09/11/18 11:46 Muscle Strength and Tone: WNL Gait and Station: Steady [facility] Medications Reviewed: Side Effects, Benefits of Medication, Risks Allergies Reviewed: Yes Mental Status Exam General Appearance: Casual, Well Groomed; No Good Eye Contact, No Cooperative, No Polite, No Good Interaction, No Psychomotor Agitation, No Psychomotor Retardation; Bizarre Mannerisms (at times) Speech: Clear, Spontaneous, Normal Rate, Normal Rhythm, Normal Volume, Normal Tone Mood: Euthymic ("happy" today. ), Other (variable) Affect: Full and Appropriate, Calm; No Withdrawn, No Tearful, No Anxious, No Agitated; Other (highly variable mood and affect. ) Thought Process: Loose Associations (likely), Other (circumstantial) Thought Content: No Suicidal Ideation; Homicidal Ideation (towards "blacks and asians" since admit), Auditory Halllucinations (likely present); No Visual Hallucinations, No Thought Broadcasting, No Ideas of Reference Sensorium: Clear (difficult to assess as she is not answering questions this am) Cognition: Alert & Oriented-Person, Alert & Oriented-Place, Alert & Oriented- Time; No Svypc-Zoxzdwyc-Csokjawwp Memory: Immediate, Recent, Remote Intelligence: Average Insight Judgment: Poor (limited at this time. ) [facility] Assessment and Plan Ddux-dw-Yhtp Encounter Date: Sep 12, 2018 Dfeb-wl-Yhar Encounter Time: 00:40 [facility] Plan: Necessary Precautions, Individual/Group Therapy, Admin/Titrate Meds, Educate Patient Tobacco Medications: Not Appropriate Condition Multpiple Antipsychotics Used: No Problems: (1) Schizophrenia Optional Permanent Comment: verses shizoaffective disorder. Last Edited By: Lui Merlos on Sep 04, 2018 11:47 Status: Chronic Condition 1. continue current medications. [facility] 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
[2018-09-13] MEDS: [UNRECOGNIZED DRUG - OTHER] PO SCH ×3 (08:20→17:09)
[2018-09-13] MEDS: MULTIVITAMINS TAB PO SCH (08:52)
[2018-09-13] MEDS: QUEtiapine FUM 100 MG TAB PO SCH ×2 (08:52→22:13)
--- NOTE | 2018-09-13 11:51 | BHS Progress Note ---
[facility] - Subjective Progress Notes Subjective No communication with this provider today, patient seen wrestling to get under covers in her room quickly as this provider approached, then feigning sleep. Patient has been compliant with seroquel last one day. Will allow more freedom of movement on unit today. Suicidal Ideation: None Homicidal Ideation: Ongoing S - Objective Physical Exam Vital Signs Hematology Test 09/06/18 08:27 White Blood Count 4.8 k/uL (4.5-11.0) Red Blood Count 4.25 M/uL (4.17-5.56) Hemoglobin 11.3 g/dL (12.0-16.0) L Hematocrit 34.5 % (34.0-47.0) Mean Corpuscular Volume 81.2 fL (80.0-96.0) Mean Corpuscular Hemoglobin 26.5 pg (26.0-33.0) Mean Corpuscular Hemoglobin Concent 32.7 g/dL (32.0-36.0) Red Cell Distribution Width 17.1 % (11.5-14.5) H Platelet Count 345 K/uL (150-450) Mean Platelet Volume 7.3 fL (7.2-11.1) Neutrophils (%) (Auto) 32.4 % (39.4-72.5) L Lymphocytes (%) (Auto) 53.1 % (17.6-49.6) H Monocytes (%) (Auto) 11.9 % (4.1-12.4) Eosinophils (%) (Auto) 1.7 % (0.4-6.7) Basophils (%) (Auto) 0.9 % (0.3-1.4) Nucleated RBC Relative Count (auto) 0.1 /100WBC Neutrophils # (Auto) 1.6 K/uL (2.0-7.4) L Lymphocytes # (Auto) 2.6 K/uL (1.3-3.6) Monocytes # (Auto) 0.6 K/uL (0.3-1.0) Eosinophils # (Auto) 0.1 K/uL (0.0-0.5) Basophils # (Auto) 0.0 K/uL (0.0-0.1) Nucleated RBC Absolute Count (auto) 0.00 K/uL Chemistry Test 09/06/18 08:27 Sodium Level 141 mmol/L (137-145) Potassium Level 4.3 mmol/L (3.5-5.0) Chloride Level 108 mmol/L (98-107) Carbon Dioxide Level 24 mmol/L (22-31) Blood Urea Nitrogen 10 mg/dl (7-18) Creatinine 0.70 mg/dl (0.52-1.04) Glomerular Filtration Rate Calc > 60.0 Random Glucose 79 mg/dl (75-110) Calcium Level 8.9 mg/dl (8.4-10.2) Total Bilirubin 0.3 mg/dl (0.2-1.3) Aspartate Amino Transf (AST/SGOT) 19 U/L (0-35) Alanine Aminotransferase (ALT/SGPT) 25 U/L (0-56) Alkaline Phosphatase 60 U/L (0-126) Total Protein 6.9 g/dl (6.3-8.2) Albumin 3.6 g/dl (3.5-5.0) Triglycerides Level 62 mg/dl (0-250) Cholesterol Level 162 mg/dl (75-200) LDL Cholesterol 83 mg/dl VLDL Cholesterol 12 mg/dl HDL Cholesterol 67 mg/dl Percent HDL Cholesterol 41.0 % Cholesterol Ratio (LDL/HDL) 1.23 Cholesterol/HDL Ratio 2.4 Toxicology Test 09/06/18 08:27 Valproic Acid (Depakene) Level 32.4 ug/ml Vital Signs Date Time Temp Pulse Resp B/P (MAP) Pulse Ox O2 Delivery O2 Flow Rate FiO2 09/11/18 11:46 Muscle Strength and Tone: WNL Gait and Station: Steady [facility] Medications Reviewed: Side Effects, Benefits of Medication, Risks Allergies Reviewed: Yes Mental Status Exam General Appearance: Casual, Well Groomed; No Good Eye Contact, No Cooperative, No Polite, No Good Interaction, No Psychomotor Agitation, No Psychomotor Retardation; Bizarre Mannerisms (at times) Speech: Clear, Spontaneous, Normal Rate, Normal Rhythm, Normal Volume, Normal Tone Mood: Euthymic (variable with no response today. ), Other (variable) Affect: Full and Appropriate, Calm; No Withdrawn, No Tearful, No Anxious, No Agitated; Other (highly variable mood and affect. ) Thought Process: Loose Associations (likely), Other (circumstantial) Thought Content: No Suicidal Ideation; Homicidal Ideation (towards "blacks and asians" since admit), Auditory Halllucinations (likely present); No Visual Hallucinations, No Thought Broadcasting, No Ideas of Reference Sensorium: Clear (difficult to assess as she is not answering questions this am) Cognition: Alert & Oriented-Person, Alert & Oriented-Place, Alert & Oriented- Time; No Exmso-Ltbsuens-Qilctioyx Memory: Immediate, Recent, Remote Intelligence: Average Insight Judgment: Poor (limited at this time. ) [facility] Assessment and Plan Ziue-ep-Phjz Encounter Date: Sep 13, 2018 Zyht-cw-Qyhf Encounter Time: 12:00 [facility] Plan: Necessary Precautions, Individual/Group Therapy, Admin/Titrate Meds, Educate Patient Tobacco Medications: Not Appropriate Condition Multpiple Antipsychotics Used: No Problems: (1) Schizophrenia Optional Permanent Comment: verses shizoaffective disorder. Last Edited By : Lui Merlos on Sep 04, 2018 11:47 Status: Chronic Condition 1. continue treatment. 2. await transfer to [facility]. 3. encourage medication compliance. 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
[2018-09-14] MEDS: MULTIVITAMINS TAB PO SCH (08:05)
[2018-09-14] MEDS: QUEtiapine FUM 100 MG TAB PO SCH ×2 (08:05→21:41)
[2018-09-14] MEDS: [UNRECOGNIZED DRUG - OTHER] PO SCH (08:05)
--- NOTE | 2018-09-14 10:02 | BHS Progress Note ---
[facility] - Subjective Progress Notes Subjective Patient communicating some with this provider, lying down, asking if "i stopped eating, could I leave sooner?" Patient notably taking seroquel last PM, and this AM, will continue to encourage compliance. Patient smiling at times, states mood is good. Suicidal Ideation: None Homicidal Ideation: Ongoing [facility] - Objective Physical Exam Vital Signs Vital Signs Date Time Temp Pulse Resp B/P (MAP) Pulse Ox O2 Delivery O2 Flow Rate FiO2 09/11/18 11:46 Muscle Strength and Tone: WNL Gait and Station: Steady [facility] Medications Reviewed: Side Effects, Benefits of Medication, Risks Allergies Reviewed: Yes Mental Status Exam General Appearance: Casual, Well Groomed; No Good Eye Contact, No Cooperative, No Polite, No Good Interaction, No Psychomotor Agitation, No Psychomotor Retardation; Bizarre Mannerisms (at times) Speech: Clear, Spontaneous, Normal Rate, Normal Rhythm, Normal Volume, Normal Tone Mood: Euthymic (variable with no response today. ), Other (variable) Affect: Full and Appropriate, Calm; No Withdrawn, No Tearful, No Anxious, No Agitated; Other (highly variable mood and affect. ) Thought Process: Loose Associations (likely) Thought Content: No Suicidal Ideation; Homicidal Ideation (towards "blacks and asians" since admit), Auditory Halllucinations (likely present); No Visual Hallucinations, No Thought Broadcasting, No Ideas of Reference Sensorium: Clear (difficult to assess as she is not answering questions this am) Cognition: Alert & Oriented-Person, Alert & Oriented-Place, Alert & Oriented- Time; No Lwopm-Gvlxbpxi-Mejubygyj Memory: Immediate, Recent, Remote Intelligence: Average Insight Judgment: Poor (limited at this time. ) [facility] Assessment and Plan Jrll-co-Jjov Encounter Date: Sep 14, 2018 Towu-yj-Ngrq Encounter Time: 09:30 [facility] Plan: Necessary Precautions, Individual/Group Therapy, Admin/Titrate Meds, Educate Patient Tobacco Medications: Not Appropriate Condition Multpiple Antipsychotics Used: No Problems: (1) Schizophrenia Optional Permanent Comment: verses shizoaffective disorder. Last Edited By: Lui Merols on Sep 04, 2018 11:47 Status: Chronic Condition 1. encourage compliance with medication. 2. await [facility]. 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
[2018-09-14] MEDS: DIVALPROEX SOD DR 500 MG TAB PO SCH (21:41)
[2018-09-15] MEDS: QUEtiapine FUM 100 MG TAB PO SCH ×3 (09:00→21:36)
[2018-09-15] MEDS: MULTIVITAMINS TAB PO SCH ×2 (09:00→14:58)
[2018-09-15] MEDS: DIVALPROEX SOD DR 500 MG TAB PO SCH ×3 (09:00→21:36)
--- NOTE | 2018-09-15 10:39 | BHS Progress Note ---
[facility] - Subjective Progress Notes Subjective Patient feigning sleep again this AM, and refusing to meet with this provider or cooperate with staff requests. Patient ignored efforts by this provider to engage in conversation. refusing medication this AM, but notably taking them last PM. No physical or verbal aggression toward staff. Patient was more talkative and engaged in activities yesterday. Suicidal Ideation: None Homicidal Ideation: Ongoing [facility] - Objective Physical Exam Vital Signs Vital Signs Date Time Temp Pulse Resp B/P (MAP) Pulse Ox O2 Delivery O2 Flow Rate FiO2 09/11/18 11:46 Muscle Strength and Tone: WNL Gait and Station: Steady [facility] Medications Reviewed: Side Effects, Benefits of Medication, Risks Allergies Reviewed: Yes Mental Status Exam General Appearance: Casual, Well Groomed; No Good Eye Contact, No Cooperative, No Polite, No Good Interaction, No Psychomotor Agitation; Psychomotor Retardation, Bizarre Mannerisms (at times) Speech: Clear, Spontaneous (yesterday communicated effectively, today refusing to communicate. ), Normal Rate, Normal Rhythm, Normal Volume, Normal Tone Mood: Euthymic (variable with no response today. ), Other (variable) Affect: Full and Appropriate, Calm; No Withdrawn, No Tearful, No Anxious, No Agitated; Other (highly variable mood and affect. ) Thought Process: Loose Associations (likely) Thought Content: No Suicidal Ideation; Homicidal Ideation (towards "blacks and asians" since admit), Auditory Halllucinations (likely present); No Visual Hallucinations, No Thought Broadcasting, No Ideas of Reference Sensorium: Clear (difficult to assess as she is not answering questions this am) Cognition: Alert & Oriented-Person, Alert & Oriented-Place, Alert & Oriented-T baljinder; No Mlceh-Oxyfnxka-Rdrllmjki Memory: Immediate, Recent, Remote Intelligence: Average Insight Judgment: Poor (limited at this time. ) [facility] Assessment and Plan Fgfx-wd-Xyqk Encounter Date: Sep 15, 2018 Dgmi-wc-Ylya Encounter Time: 10:30 [facility] Plan: Necessary Precautions, Individual/Group Therapy, Admin/Titrate Meds, Educate Patient Tobacco Medications: Not Appropriate Condition Multpiple Antipsychotics Used: No Problems: (1) Schizophrenia Optional Permanent Comment: verses shizoaffective disorder. Last Edited By: Lui Merlos on Sep 04, 2018 11:47 Status: Chronic Condition 1. continue treatment. 2. encourage consistency and medication compliance. 3. await transfer to [facility]. 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
[2018-09-15] MEDS ORDERED: QUEtiapine FUM 100 MG TAB PO PRN (11:25)
[2018-09-16] MEDS: MULTIVITAMINS TAB PO SCH (08:19)
[2018-09-16] MEDS: QUEtiapine FUM 100 MG TAB PO SCH ×2 (08:19→20:33)
[2018-09-16] MEDS: DIVALPROEX SOD DR 500 MG TAB PO SCH ×2 (08:19→20:33)
--- NOTE | 2018-09-16 11:27 | BHS Progress Note ---
[facility] - Subjective Progress Notes Subjective Pt seen in Unit C. She is alert, talking with us sitting up on the bed, with variable eye contact. Compliant with meds. Denies current AH, denies racing thoughts, but still seems pretty paranoid and guarded around the subject of Asians and Blacks, also about the police in [place]-- says "I just know they don't want me back there." Pt is asking to take her meals in dining room with peers, and to use exercise room. We reminded her about the recent incident of broken CD, and she promises no property destruction, we said she can try coming out for lunch and will monitor for safe behavior for further meals. If today goes well, we might consider her using the exercise room tomorrow. Will check routine valproate labs since she is now taking her meds more regularly. Depakote seems to be helping overall. Suicidal Ideation: None Homicidal Ideation: None [facility] - Objective Physical Exam Vital Signs refused, pt clinically stable Muscle Strength and Tone: WNL Gait and Station: Steady [facility] Medications Reviewed: Side Effects, Benefits of Medication, Risks Allergies Reviewed: Yes Mental Status Exam General Appearance: Casual, Well Groomed; No Good Eye Contact, No Cooperative, No Polite, No Good Interaction, No Psychomotor Agitation; Psychomotor Retardation, Bizarre Mannerisms (at times) Speech: Clear, Spontaneous (yesterday communicated effectively, today refusing to communicate. ), Normal Rate, Normal Rhythm, Normal Volume, Normal Tone Mood: Euthymic (variable with no response today. ), Other (variable) Affect: Full and Appropriate, Calm; No Withdrawn, No Tearful, No Anxious, No Agitated; Other (highly variable mood and affect. ) Thought Process: Loose Associations (likely) Thought Content: No Suicidal Ideation; Homicidal Ideation (towards "blacks and asians" since admit), Auditory Halllucinations (likely present); No Visual Hallucinations, No Thought Broadcasting, No Ideas of Reference Sensorium: Clear (difficult to assess as she is not answering questions this am) Cognition: Alert & Oriented-Person, Alert & Oriented-Place, Alert & Oriented- Time; No Ejjfw-Raancizb-Kpiqqnmaw Memory: Immediate, Recent, Remote Intelligence: Average Insight Judgment: Poor (limited at this time. ) [facility] Assessment and Plan Flki-jd-Mqrt Encounter Date: Sep 16, 2018 Btvd-hj-Etyo Encounter Time: 10:00 [facility] Plan: Necessary Precautions, Individual/Group Therapy, Admin/Titrate Meds, Educate Patient Tobacco Medications: Not Appropriate Condition Multpiple Antipsychotics Used: No Problems: (1) Schizophrenia Optional Permanent Comment: verses shizoaffective disorder. 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
[2018-09-16 18:27] VITALS: BP 104/52
[2018-09-17 06:45] LABS: PLATELET COUNT, AUTOMATED 305 K/uL (150-450)
[2018-09-17] MEDS: DIVALPROEX SOD DR 500 MG TAB PO SCH ×2 (08:10→20:47)
[2018-09-17] MEDS: QUEtiapine FUM 100 MG TAB PO SCH ×2 (08:10→20:46)
[2018-09-17] MEDS: MULTIVITAMINS TAB PO SCH (08:10)
--- NOTE | 2018-09-17 11:12 | BHS Progress Note ---
[facility] - Subjective Progress Notes Subjective Pt seen in Unit C. She is alert, cooperative, taking meds, sitting up to talk to us. She did well yesterday coming out for meals. We will try having her out in the [place] more today. She denies any urges for self harm or harm to others, there has been no aggression. Tolerating meds well. Labs today are essentially WNL, with valproate level just slightly low at 48.3, but pt clearly clinically better, so will continue current dose. Suicidal Ideation: None Homicidal Ideation: None [facility] - Objective Physical Exam Vital Signs Vital Signs 09/16/18 18:27 Temp 98.4 Pulse 87 Resp 16 B/P (MAP) 104/52 (69) Pulse Ox 96 O2 Delivery Room Air Muscle Strength and Tone: WNL Gait and Station: Steady [facility] Medications Reviewed: Side Effects, Benefits of Medication, Risks Allergies Reviewed: Yes Mental Status Exam General Appearance: Casual, Well Groomed; No Good Eye Contact; Cooperative, Polite, Good Interaction, Psychomotor Retardation Speech: Clear, Spontaneous, Normal Rate, Normal Rhythm, Normal Volume, Normal Tone Mood: Euthymic Affect: Full and Appropriate, Calm Thought Process: Organized, Logical, Goal Directed Thought Content: No Suicidal Ideation, No Homicidal Ideation, No Delusions, No Auditory Halllucinations, No Visual Hallucinations, No Thought Broadcasting, No Ideas of Reference; Obsessions (still some paranoia and obsession with Blacks, Asians, police); No Compulsions, No Other Sensorium: Clear Cognition: Alert & Oriented-Person, Alert & Oriented-Place, Alert & Oriented- Time; No Wdioq-Jtsuntfm-Reaggfgog Memory: Immediate, Recent, Remote Intelligence: Average Insight Judgment: Poor Result Diagram: 09/17/1861109/17/18611 [facility] Assessment and Plan Mlpe-pa-Fpon Encounter Date: Sep 17, 2018 Jwoo-zu-Ojos Encounter Time: 10:00 [facility] Plan: Necessary Precautions, Individual/Group Therapy, Admin/Titrate Meds, Educate Patient Tobacco Medications: Not Appropriate Condition Multpiple Antipsychotics Used: No Problems: (1) Schizophrenia Optional Permanent Comment: verses shizoaffective disorder. 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
[2018-09-17 16:20] VITALS: BP 118/68
[2018-09-18] MEDS: DIVALPROEX SOD DR 500 MG TAB PO SCH ×2 (08:05→20:19)
[2018-09-18] MEDS: QUEtiapine FUM 100 MG TAB PO SCH ×2 (08:05→20:18)
--- NOTE | 2018-09-18 12:16 | BHS Progress Note ---
[facility] - Subjective Progress Notes Subjective Patient displaying more energy today, is up and alert, and notably not feigning being asleep this AM. Patient making poor eye contact overall, but smiling and denies any other concerns. Patient will continue same medications today, and continues to await [facility]. No medication changes, and will continue to encourage compliance with treatment. Suicidal Ideation: None Homicidal Ideation: None [facility] - Objective Physical Exam Vital Signs Vital Signs Date Time Temp Pulse Resp B/P (MAP) Pulse Ox O2 Delivery O2 Flow Rate FiO2 09/17/18 16:20 98.7 90 16 118/68 (85) 97 Room Air Hematology Test 09/17/18 06:12 White Blood Count 5.5 k/uL (4.5-11.0) Red Blood Count 3.93 M/uL (4.17-5.56) L Hemoglobin 10.2 g/dL (12.0-16.0) L Hematocrit 31.3 % (34.0-47.0) L Mean Corpuscular Volume 79.8 fL (80.0-96.0) L Mean Corpuscular Hemoglobin 26.0 pg (26.0-33.0) Mean Corpuscular Hemoglobin Concent 32.6 g/dL (32.0-36.0) Red Cell Distribution Width 16.5 % (11.5-14.5) H Platelet Count 305 K/uL (150-450) Mean Platelet Volume 7.3 fL (7.2-11.1) Neutrophils (%) (Auto) 37.4 % (39.4-72.5) L Lymphocytes (%) (Auto) 49.5 % (17.6-49.6) Monocytes (%) (Auto) 9.0 % (4.1-12.4) Eosinophils (%) (Auto) 3.4 % (0.4-6.7) Basophils (%) (Auto) 0.7 % (0.3-1.4) Nucleated RBC Relative Count (auto) 0.1 /100WBC Neutrophils # (Auto) 2.1 K/uL (2.0-7.4) Lymphocytes # (Auto) 2.7 K/uL (1.3-3.6) Monocytes # (Auto) 0.5 K/uL (0.3-1.0) Eosinophils # (Auto) 0.2 K/uL (0.0-0.5) Basophils # (Auto) 0.0 K/uL (0.0-0.1) Nucleated RBC Absolute Count (auto) 0.01 K/uL Chemistry Test 09/06/18 08:27 09/17/18 06:12 Triglycerides Level 62 mg/dl (0-250) Cholesterol Level 162 mg/dl (75-200) LDL Cholesterol 83 mg/dl VLDL Cholesterol 12 mg/dl HDL Cholesterol 67 mg/dl Percent HDL Cholesterol 41.0 % Cholesterol Ratio (LDL/HDL) 1.23 Cholesterol/HDL Ratio 2.4 Sodium Level 135 mmol/L (137-145) Potassium Level 4.0 mmol/L (3.5-5.0) Chloride Level 105 mmol/L (98-107) Carbon Dioxide Level 23 mmol/L (22-31) Blood Urea Nitrogen 11 mg/dl (7-18) Creatinine 0.60 mg/dl (0.52-1.04) Glomerular Filtration Rate Calc > 60.0 Random Glucose 76 mg/dl (75-110) Calcium Level 8.2 mg/dl (8.4-10.2) Total Bilirubin 0.2 mg/dl (0.2-1.3) Aspartate Amino Transf (AST/SGOT) 18 U/L (0-35) Alanine Aminotransferase (ALT/SGPT) 31 U/L (0-56) Alkaline Phosphatase 61 U/L (0-126) Total Protein 6.3 g/dl (6.3-8.2) Albumin 3.0 g/dl (3.5-5.0) Toxicology Test 09/17/18 06:12 Valproic Acid (Depakene) Level 48.3 ug/ml Muscle Strength and Tone: WNL Gait and Station: Steady [facility] Medications Reviewed: Side Effects, Benefits of Medication, Risks Allergies Reviewed: Yes Mental Status Exam General Appearance: Casual, Well Groomed; No Good Eye Contact; Cooperative, Polite, Good Interaction Speech: Clear, Spontaneous, Normal Rate, Normal Rhythm, Normal Volume, Normal Tone Mood: Euthymic Affect: Full and Appropriate, Calm, Withdrawn (at times); No Tearful, No Anxious Thought Process: Organized, Logical, Goal Directed Thought Content: No Suicidal Ideation, No Homicidal Ideation, No Delusions; Auditory Halllucinations (likely); No Visual Hallucinations, No Thought [place] ting, No Ideas of Reference; Obsessions (still some paranoia and obsession with Blacks, Asians, police); No Compulsions, No Other Sensorium: Clear Cognition: Alert & Oriented-Person, Alert & Oriented-Place, Alert & Oriented- Time; No Hjvmu-Tyyiqlas-Doreozemp (not fully) Memory: Immediate, Recent, Remote Intelligence: Average Insight Judgment: Poor (remains limited ) Result Diagram: 09/17/1861109/17/18611 [facility] Assessment and Plan [id number] Encounter Date: Sep 18, 2018 Ahzv-re-Xqre Encounter Time: 10:30 [facility] Plan: Necessary Precautions, Individual/Group Therapy, Admin/Titrate Meds, Educate Patient Tobacco Medications: Not Appropriate Condition Multpiple Antipsychotics Used: No Problems: (1) Schizophrenia Optional Permanent Comment: verses shizoaffective disorder. Last Edited By: Lui Merlos on Sep 04, 2018 11:47 Status: Chronic Condition 1. continue treatment. 2. no medication changes. [facility]. [facility] 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
[2018-09-18 20:15] VITALS: BP 108/60
[2018-09-19] MEDS: DIVALPROEX SOD DR 500 MG TAB PO SCH ×2 (07:58→20:52)
[2018-09-19] MEDS: QUEtiapine FUM 100 MG TAB PO SCH ×2 (07:59→20:53)
--- NOTE | 2018-09-19 09:14 | BHS Progress Note ---
[facility] - Subjective Progress Notes Subjective Patient interacting well with this provider this AM, voicing concerns about her discharge, making poor eye contact, smiling today and able to eat in the dining room this AM. Notably taking medications more responsibly, and no physical aggression towards staff or other patients. Suicidal Ideation: None Homicidal Ideation: Ongoing [facility] - Objective Physical Exam Vital Signs Vital Signs Date Time Temp Pulse Resp B/P (MAP) Pulse Ox O2 Delivery O2 Flow Rate FiO2 09/18/18 20:15 99.8 108/60 (76) 97 Room Air 09/17/18 16:20 90 16 Muscle Strength and Tone: WNL Gait and Station: Steady [facility] Medications Reviewed: Side Effects, Benefits of Medication, Risks Allergies Reviewed: Yes Mental Status Exam General Appearance: Casual, Well Groomed; No Good Eye Contact; Cooperative, Polite, Good Interaction; No Psychomotor Agitation, No Psychomotor Retardation; Bizarre Mannerisms Speech: Clear, Spontaneous, Normal Rate, Normal Rhythm, Normal Volume, Normal Tone Mood: Euthymic Affect: Full and Appropriate, Calm, Withdrawn (at times); No Tearful, No Anxious Thought Process: Organized, Logical, Goal Directed Thought Content: No Suicidal Ideation, No Homicidal Ideation, No Delusions; Auditory Halllucinations (likely); No Visual Hallucinations, No Thought Broa dcasting, No Ideas of Reference; Obsessions (still some paranoia and obsession with Blacks, Asians, police); No Compulsions, No Other Sensorium: Clear Cognition: Alert & Oriented-Person, Alert & Oriented-Place, Alert & Oriented- Time; No Nlnzz-Qawnjzju-Dpjfgssyj (not fully) Memory: Immediate, Recent, Remote Intelligence: Average Insight Judgment: Poor (remains limited ) Result Diagram: 09/17/1861109/17/18611 [facility] Assessment and Plan Zool-yd-Dwjh Encounter Date: Sep 19, 2018 Djrt-ul-Jgda Encounter Time: 08:00 [facility] Plan: Necessary Precautions, Individual/Group Therapy, Admin/Titrate Meds, Educate Patient Tobacco Medications: Not Appropriate Condition Multpiple Antipsychotics Used: No Problems: (1) Schizophrenia Optional Permanent Comment: verses shizoaffective disorder. Last Edited By: Lui Merlos on Sep 04, 2018 11:47 Status: Chronic Condition 1. Continue treatment. [facility] 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
[2018-09-19 10:22] VITALS: BP 113/62
[2018-09-20] MEDS: DIVALPROEX SOD DR 500 MG TAB PO SCH ×2 (08:24→21:52)
[2018-09-20] MEDS: QUEtiapine FUM 100 MG TAB PO SCH ×2 (08:25→21:52)
--- NOTE | 2018-09-20 13:47 | BHS Progress Note ---
[facility] - Subjective Progress Notes Subjective Patient communicating well today and stating she feels tired in the AM, fairly logical, and requesting lowering dose in the AM. Appetite good, sleep at night good. No other concerns. Suicidal Ideation: None Homicidal Ideation: None [facility] - Objective Physical Exam Vital Signs Vital Signs Date Time Temp Pulse Resp B/P (MAP) Pulse Ox O2 Delivery O2 Flow Rate FiO2 09/19/18 10:22 97.6 113/62 (79) 96 Room Air 09/17/18 16:20 90 16 Muscle Strength and Tone: WNL Gait and Station: Steady [facility] Medications Reviewed: Side Effects, Benefits of Medication, Risks Allergies Reviewed: Yes Mental Status Exam General Appearance: Casual, Well Groomed; No Good Eye Contact; Cooperative, Polite, Good Interaction; No Psychomotor Agitation, No Psychomotor Retardation; Bizarre Mannerisms Speech: Clear, Spontaneous, Normal Rate, Normal Rhythm, Normal Volume, Normal Tone Mood: Euthymic Affect: Full and Appropriate, Calm, Withdrawn (at times); No Tearful, No Anxious Thought Process: Organized, Logical, Goal Directed Thought Content: No Suicidal Ideation, No Homicidal Ideation, No Delusions; Auditory Halllucinations (likely); No Visual Hallucinations, No Thought B roadcasting, No Ideas of Reference; Obsessions (still some paranoia and obsession with Blacks, Asians, police); No Compulsions, No Other Sensorium: Clear Cognition: Alert & Oriented-Person, Alert & Oriented-Place, Alert & Oriented- Time; No Njglu-Myrixzkb-Mtzeciquz (not fully) Memory: Immediate, Recent, Remote Intelligence: Average Insight Judgment: Poor (remains limited ) Result Diagram: 09/17/1861109/17/18611 [facility] Assessment and Plan Kdht-ty-Nqnd Encounter Date: Sep 20, 2018 Gdrw-zn-Xmjb Encounter Time: 12:00 [facility] Plan: Necessary Precautions, Individual/Group Therapy, Admin/Titrate Meds, Educate Patient Tobacco Medications: Not Appropriate Condition Multpiple Antipsychotics Used: No Problems: (1) Schizophrenia Optional Permanent Comment: verses shizoaffective disorder. Last Edited By: Lui Merlos on Sep 04, 2018 11:47 Status: Chronic Condition 1. continue treatment. 2. will lower AM seroquel to 50mg. 3. continue other medications at current dose. [facility]. [facility] 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
[2018-09-20] MEDS ORDERED: IBUPROFEN 600 MG TAB PO PRN (22:05)
[2018-09-21] MEDS: DIVALPROEX SOD DR 500 MG TAB PO SCH ×2 (07:55→20:27)
[2018-09-21] MEDS: QUEtiapine FUM 25 MG TAB PO SCH (07:55)
--- NOTE | 2018-09-21 08:08 | BHS Progress Note ---
[facility] - Subjective Progress Notes Subjective Patient up and alert this AM, interacting well with this provider, and greeting by name. will decrease AM seroquel this AM to 50mg due to patients concerns of daytime sedation, resting/sleeping well at night on current regimen. Patient denies any other concerns. Appetite good, a more prolonged series of fully interactive days is notable. No physical aggression toward staff, underlying hatred toward "blacks and asians" will continue to need to be evaluated, patient has made homicidal threats toward race in general. Suicidal Ideation: None Homicidal Ideation: Ongoing [facility] - Objective Physical Exam Vital Signs Vital Signs Date Time Temp Pulse Resp B/P (MAP) Pulse Ox O2 Delivery O2 Flow Rate FiO2 09/19/18 10:22 97.6 113/62 (79) 96 Room Air 09/17/18 16:20 90 16 Muscle Strength and Tone: WNL Gait and Station: Steady [facility] Medications Reviewed: Side Effects, Benefits of Medication, Risks Allergies Reviewed: Yes Mental Status Exam General Appearance: Casual, Well Groomed; No Good Eye Contact; Cooperative, Polite, Good Interaction; No Psychomotor Agitation, No Psychomotor Retardation; Bizarre Mannerisms Speech: Clear, Spontaneous, Normal Rate, Normal Rhythm, Normal Volume, Normal Tone Mood: Euthymic Affect: Full and Appropriate, Calm, Withdrawn (at times); No Tearful, No Anxious Thought Process: Organized, Logical, Goal Directed (wants to leave hospital) Thought Content: No Suicidal Ideation, No Homicidal Ideation, No Delusions; Auditory Halllucinations (likely); No Visual Hallucinations, No Thought Broadcasting, No Ideas of Reference; Obsessions (still some paranoia and obsession with Blacks, Asians, police); No Compulsions, No Other Sensorium: Clear Cognition: Alert & Oriented-Person, Alert & Oriented-Place, Alert & Oriented- Time; No Rcpma-Bryelkvt-Yxhdustye (not fully) Memory: Immediate, Recent, Remote Intelligence: Average Insight Judgment: Poor (remains limited ) Result Diagram: 09/17/1861109/17/18611 [facility] Assessment and Plan Xsij-yr-Soiv Encounter Date: Sep 21, 2018 Jtxn-zo-Abxt Encounter Time: 08:00 [facility] Plan: Necessary Precautions, Individual/Group Therapy, Admin/Titrate Meds, Educate Patient Tobacco Medications: Not Appropriate Condition Multpiple Antipsychotics Used: No Problems: (1) Schizophrenia Optional Permanent Comment: verses shizoaffective disorder. Last Edited By: Lui Merlos on Sep 04, 2018 11:47 Status: Chronic Condition 1. continue treatment, labs today 2. [facility] 3. seroquel AM dose reduced to 50mg. 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
[2018-09-21 08:31] VITALS: BP 105/70
[2018-09-21] MEDS: QUEtiapine FUM 100 MG TAB PO SCH (20:27)
[2018-09-22] MEDS: QUEtiapine FUM 25 MG TAB PO SCH (08:07)
[2018-09-22] MEDS: DIVALPROEX SOD DR 500 MG TAB PO SCH ×2 (08:07→20:40)
--- NOTE | 2018-09-22 08:39 | BHS Progress Note ---
[facility] - Subjective Progress Notes Subjective Patient smiling with this provider this AM, and giggling, denies any concerns. Noted to be eating next to another male patient and doing very well. Will continue same medications, Labs will be drawn in the AM tomorrow, as they were too late this AM after patient ate and took her Depakote. (fasting lipids and Depakote). Suicidal Ideation: None Homicidal Ideation: None [facility] - Objective Physical Exam Vital Signs Vital Signs Date Time Temp Pulse Resp B/P (MAP) Pulse Ox O2 Delivery O2 Flow Rate FiO2 09/21/18 08:31 98.4 83 105/70 (82) 95 Room Air Muscle Strength and Tone: WNL Gait and Station: Steady [facility] Medications Reviewed: Side Effects, Benefits of Medication, Risks Allergies Reviewed: Yes Mental Status Exam General Appearance: Casual, Well Groomed; No Good Eye Contact; Cooperative, Polite, Good Interaction; No Psychomotor Agitation, No Psychomotor Retardation; Bizarre Mannerisms Speech: Clear, Spontaneous, Normal Rate, Normal Rhythm, Normal Volume, Normal Tone Mood: Euthymic Affect: Full and Appropriate, Calm, Withdrawn (at times); No Tearful, No Anxious Thought Process: Organized, Logical, Goal Directed (wants to leave hospital) Thought Content: No Suicidal Ideation, No Homicidal Ideation, No Delusions; Auditory Halllucinations (likely); No Visual Hallucinations, No Thought Broadcasting, No Ideas of Reference; Obsessions (still some paranoia and obsession with Blacks, Asians, police); No Compulsions, No Other Sensorium: Clear Cognition: Alert & Oriented-Person, Alert & Oriented-Place, Alert & Oriented- Time; No Yadyl-Maxpuqco-Qiwtgacex (not fully) Memory: Immediate, Recent, Remote Intelligence: Average Insight Judgment: Poor (remains limited ) [facility] Assessment and Plan Rgwi-hd-Eqoz Encounter Date: Sep 22, 2018 Lmgb-tj-Rngg Encounter Time: 08:00 [facility] Plan: Necessary Precautions, Individual/Group Therapy, Admin/Titrate Meds, Educate Patient Tobacco Medications: Not Appropriate Condition Multpiple Antipsychotics Used: No Problems: (1) Schizophrenia Optional Permanent Comment: verses shizoaffective disorder. Last Edited By: Lui Merlos on Sep 04, 2018 11:47 Status: Chronic Condition 1. continue treatment. 2. no medication changes. 3. [facility]. 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
[2018-09-22 13:25] VITALS: BP 116/60
[2018-09-22] MEDS: QUEtiapine FUM 100 MG TAB PO SCH (20:40)
[2018-09-23] MEDS: DIVALPROEX SOD DR 500 MG TAB PO SCH ×3 (07:54→21:18)
[2018-09-23] MEDS: QUEtiapine FUM 25 MG TAB PO SCH (07:54)
[2018-09-23 07:56] LABS: PLATELET COUNT, AUTOMATED 302 K/uL (150-450)
[2018-09-23 08:46] LABS: LDL CHOLESTEROL 96 mg/dl
--- NOTE | 2018-09-23 09:10 | BHS Progress Note ---
[facility] - Subjective Progress Notes Subjective "I'm fine," Interviewed in tv room, some eye contact, polite, denies depression, anxiety or anger and reports slept well Compliant w/medications Suicidal Ideation: None Homicidal Ideation: None [facility] - Objective Physical Exam Vital Signs Vital Signs Date Time Temp Pulse Resp B/P (MAP) Pulse Ox O2 Delivery O2 Flow Rate FiO2 09/22/18 13:25 98.0 66 16 116/60 (78) 94 Room Air Muscle Strength and Tone: WNL Gait and Station: Steady [facility] Medications Reviewed: Side Effects, Benefits of Medication, Risks Allergies Reviewed: Yes Mental Status Exam General Appearance: Casual, Well Groomed; No Good Eye Contact; Cooperative, Polite, Good Interaction; No Psychomotor Agitation, No Psychomotor Retardation; Bizarre Mannerisms Speech: Clear, Spontaneous, Normal Rate, Normal Rhythm, Normal Volume, Normal Tone Mood: Euthymic Affect: Full and Appropriate, Calm, Withdrawn (at times); No Tearful, No Anxious Thought Process: Organized, Logical, Goal Directed (wants to leave hospital) Thought Content: No Suicidal Ideation, No Homicidal Ideation, No Delusions; Auditory Halllucinations (likely); No Visual Hallucinations, No Thought Broadcasting, No Ideas of Reference; Obsessions (still some paranoia and obsession with Blacks, Asians, police); No Compulsions, No Other Sensorium: Clear Cognition: Alert & Oriented-Person, Alert & Oriented-Place, Alert & Oriented- Time; No Azvfs-Nncqkcmp-Tjrxuvwag (not fully) Memory: Immediate, Recent, Remote Intelligence: Average Insight Judgment: Poor (remains limited ) Result Diagram: 09/23/18 0745 [facility] Medications (Trade) Dose Ordered Sig/Juana Route PRN Reason Start Time Stop Time Status Last Admin Dose Admin Divalproex Sodium (Depakote Sprinkle 125 Mg (Or Equiv)) 250 mg TIDCF PO 09/01/18 17:00 09/14/18 11:58 DC 09/14/18 08:05 Divalproex Sodium (Depakote Dr 500 Mg Tab (Or Equiv)) 500 mg BID PO 09/14/18 21:00 10/14/18 20:59 09/23/18 07:54 Multivitamins (Thera-M Enhanced Tab (Or Equiv)) 1 each QDAY PO 08/16/18 09:00 09/17/18 10:26 DC 09/17/18 08:10 Quetiapine Fumarate (SEROquel 100 MG TAB (OR EQUIV)) 100 mg ONCE ONCE PO 09/11/18 12:35 09/11/18 12:40 DC 09/11/18 12:37 Quetiapine Fumarate (SEROquel 25 MG TAB (OR EQUIV)) 50 mg QAM PO 09/21/18 09:00 10/21/18 08:59 09/23/18 07:54 S Assessment and Plan Favp-uo-Cwzq Encounter Date: Sep 23, 2018 Vale-ui-Hllo Encounter Time: 09:30 [facility] Plan: Necessary Precautions, Individual/Group Therapy, Admin/Titrate Meds, Educate Patient Tobacco Medications: Not Appropriate Condition Multpiple Antipsychotics Used: No Problems: (1) Schizophrenia Optional Permanent Comment: verses shizoaffective disorder. 

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
[2018-09-23] MEDS: QUEtiapine FUM 100 MG TAB PO SCH ×2 (21:00→21:19)
[2018-09-24] MEDS: DIVALPROEX SOD DR 500 MG TAB PO SCH ×2 (08:22→21:00)
[2018-09-24] MEDS: QUEtiapine FUM 25 MG TAB PO SCH (08:22)
--- NOTE | 2018-09-24 09:32 | BHS Progress Note ---
[facility] - Subjective Progress Notes Subjective "I'm fine." Refusing medications last pm and this am Was in general population yesterday until she threw coffee on PSA attempting to get her diet menu Denies depression, anxiety or anger Denies thoughts of hurting self or others Awaiting [facility] transfer Suicidal Ideation: None Homicidal Ideation: None [facility] - Objective Physical Exam Vital Signs Medications (Trade) Dose Ordered Sig/Juana Route PRN Reason Start Time Stop Time Status Last Admin Dose Admin Divalproex Sodium (Depakote Sprinkle 125 Mg (Or Equiv)) 250 mg TIDCF PO 09/01/18 17:00 09/14/18 11:58 DC 09/14/18 08:05 Divalproex Sodium (Depakote Dr 500 Mg Tab (Or Equiv)) 500 mg BID PO 09/14/18 21:00 10/14/18 20:59 09/23/18 07:54 Multivitamins (Thera-M Enhanced Tab (Or Equiv)) 1 each QDAY PO 08/16/18 09:00 09/17/18 10:26 DC 09/17/18 08:10 Quetiapine Fumarate (SEROquel 100 MG TAB (OR EQUIV)) 100 mg ONCE ONCE PO 09/11/18 12:35 09/11/18 12:40 DC 09/11/18 12:37 Quetiapine Fumarate (SEROquel 25 MG TAB (OR EQUIV)) 50 mg QAM PO 09/21/18 09:00 10/21/18 08:59 09/23/18 07:54 Muscle Strength and Tone: WNL Gait and Station: Steady [facility] Medications Reviewed: Side Effects, Benefits of Medication, Risks Allergies Reviewed: Yes Mental Status Exam General Appearance: Casual, Well Groomed; No Good Eye Contact, No Cooperative; Polite, Good Interaction (fair to poor interaction ); No Psychomotor Agitation, No Psychomotor Retardation; Bizarre Mannerisms Speech: Clear, Spontaneous, Normal Rate, Normal Rhythm, Normal Volume, Normal Tone Mood: No Euthymic (minimal responses to provider, difficult obtain accurate assessment of mood, labile); Other Affect: Full and Appropriate, Calm, Withdrawn (at times); No Tearful, No Anxious Thought Process: Organized, Logical, Goal Directed (wants to leave hospital) Thought Content: No Suicidal Ideation, No Homicidal Ideation, No Delusions, No Auditory Halllucinations (likely), No Visual Hallucinations, No Thought Broadc asting, No Ideas of Reference; Obsessions (still some paranoia and obsession with Blacks, Asians, police); No Compulsions, No Other Sensorium: Clear Cognition: Alert & Oriented-Person, Alert & Oriented-Place, Alert & Oriented- Time; No Yhzga-Xxqqbdos-Begddstub (not fully) Memory: Immediate, Recent, Remote Intelligence: Average Insight Judgment: Poor (remains limited ) Result Diagram: 09/23/18 0745 09/23/18 0745 [facility] Assessment and Plan Slnd-gz-Ourr Encounter Date: Sep 24, 2018 Ryml-db-Road Encounter Time: 09:25 [facility] Plan: Necessary Precautions, Individual/Group Therapy, Admin/Titrate Meds, Educate Patient Tobacco Medications: Not Appropriate Condition Multpiple Antipsychotics Used: No Problems: (1) Schizophrenia Optional Permanent Comment: verses shizoaffective disorder. 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
[2018-09-24] MEDS: QUEtiapine FUM 100 MG TAB PO SCH (21:00)
[2018-09-25] MEDS ORDERED: QUEtiapine FUM 100 MG TAB PO ONE ×2 (03:10→22:10)
[2018-09-25] MEDS ORDERED: DIVALPROEX SOD DR 500 MG TAB PO ONE ×2 (03:10→22:10)
[2018-09-25] MEDS: QUEtiapine FUM 25 MG TAB PO SCH (07:57)
[2018-09-25] MEDS: DIVALPROEX SOD DR 500 MG TAB PO SCH ×3 (07:57→21:35)
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
[2018-09-25] MEDS: QUEtiapine FUM 100 MG TAB PO SCH ×2 (21:00→21:34)
[2018-09-26] MEDS: DIVALPROEX SOD DR 500 MG TAB PO SCH ×2 (08:00→20:13)
[2018-09-26] MEDS: QUEtiapine FUM 25 MG TAB PO SCH (08:00)
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
[2018-09-26] MEDS: QUEtiapine FUM 100 MG TAB PO SCH (20:13)
[2018-09-27] MEDS: DIVALPROEX SOD DR 500 MG TAB PO SCH ×2 (08:04→21:19)
[2018-09-27] MEDS: QUEtiapine FUM 25 MG TAB PO SCH (08:05)
[2018-09-27 09:49] VITALS: BP 105/62
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
[2018-09-27] MEDS: QUEtiapine FUM 100 MG TAB PO SCH (21:19)
[2018-09-28] MEDS: DIVALPROEX SOD DR 500 MG TAB PO SCH ×2 (08:05→20:29)
[2018-09-28] MEDS: QUEtiapine FUM 25 MG TAB PO SCH (08:06)
[2018-09-28] MEDS ORDERED: QUET300T18 PO (08:16)
[2018-09-28] MEDS ORDERED: DIVA500T98 PO (08:16)
[2018-09-28] MEDS ORDERED: QUET50TA21 PO ×3 (08:16→08:34)
[2018-09-28] MEDS ORDERED: LORA2VIA2 IM (08:17)
[2018-09-28] MEDS ORDERED: DIPH50VI24 IM (08:18)
[2018-09-28] MEDS ORDERED: MAG-66 PO (08:19)
[2018-09-28] MEDS ORDERED: IBUP600T22 PO (08:20)
[2018-09-28] MEDS ORDERED: OLAN10VI IM (08:22)
[2018-09-28] MEDS ORDERED: DIPH50DI IM (08:25)
[2018-09-28] MEDS ORDERED: [UNRECOGNIZED DRUG - OTHER] IM ONLY (08:41)
[2018-09-28] MEDS ORDERED: QUEtiapine FUM 100 MG TAB PO ONE (09:00)
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
[2018-09-28] MEDS: QUEtiapine FUM 100 MG TAB PO SCH (20:29)
[2018-09-29] MEDS: DIVALPROEX SOD DR 500 MG TAB PO SCH ×2 (08:14→20:15)
[2018-09-29] MEDS: QUEtiapine FUM 25 MG TAB PO SCH (08:14)
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
[2018-09-29] MEDS: QUEtiapine FUM 100 MG TAB PO SCH (20:16)
[2018-09-30] MEDS: DIVALPROEX SOD DR 500 MG TAB PO SCH ×2 (08:09→21:37)
[2018-09-30] MEDS: QUEtiapine FUM 25 MG TAB PO SCH (08:09)
--- NOTE | 2018-09-30 11:03 | BHS Progress Note ---
[facility] - Subjective Progress Notes Subjective This typewriter assembly and parts inspector and therapist attempted to engage client in her room. She was lying in bed with her eyes closed and did not acknowledge our verbal attempts to engage. We invited her to let us know if she has any needs and none were verbalized. Suicidal Ideation: None Homicidal Ideation: Ongoing [facility] - Objective Physical Exam Vital Signs Vital Signs Date Time Temp Pulse Resp B/P (MAP) Pulse Ox O2 Delivery O2 Flow Rate FiO2 09/29/18 18:40 18 09/27/18 09:49 98.6 84 105/62 (76) 95 Room Air Muscle Strength and Tone: WNL Gait and Station: Steady [facility] Medications Reviewed: Side Effects, Benefits of Medication, Risks Allergies Reviewed: Yes Mental Status Exam General Appearance: Casual, Well Groomed; No Good Eye Contact, No Cooperative, No Polite, No Good Interaction, No Tearful, No Psychomotor Agitation; Psychomo tor Retardation, Bizarre Mannerisms Speech: Other (would not speak to this typewriter assembly and parts inspector during rounds) Mood: No Euthymic (no response to provider, difficult obtain accurate assessment of mood, labile); Other (agitated.) Affect: Withdrawn (at times); No Tearful, No Anxious Thought Process: No Organized, No Logical Thought Content: No Suicidal Ideation, No Homicidal Ideation, No Delusions, No Auditory Halllucinations (likely), No Visual Hallucinations, No Thought Broadcasting, No Ideas of Reference; Obsessions ( paranoia and obsession with Blacks, Asians, police); No Compulsions, No Other Sensorium: Clear Cognition: Alert & Oriented-Person, Alert & Oriented-Place, Alert & Oriented- Time; No Wqhqn-Rbqvyfrt-Frewgcllw (not fully) Memory: Immediate, Recent, Remote Intelligence: Average Insight Judgment: Poor (remains limited ) [facility] Assessment and Plan Sunv-sa-Yrxp Encounter Date: Sep 30, 2018 Lipx-pv-Nmsu Encounter Time: 10:00 [facility] Plan: Necessary Precautions, Individual/Group Therapy, Admin/Titrate Meds, Educate Patient Tobacco Medications: Not Appropriate Condition Multpiple Antipsychotics Used: No Problems: (1) Schizophrenia Optional Permanent Comment: verses shizoaffective disorder. Last Edited By: Ronnie Koch on Sep 04, 2018 11:47 Status: Chronic Condition Client refused to acknowledge or engage with this typewriter assembly and parts inspector during rounds. It is reported that she is compliant with medications. Will continue to attempt to engage. PLAN: Awaiting transfer to the [facility]. 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
[2018-09-30] MEDS: QUEtiapine FUM 100 MG TAB PO SCH (21:37)
[2018-10-01] MEDS: QUEtiapine FUM 25 MG TAB PO SCH (08:12)
[2018-10-01] MEDS: DIVALPROEX SOD DR 500 MG TAB PO SCH ×2 (08:12→21:45)
--- NOTE | 2018-10-01 10:44 | BHS Progress Note ---
[facility] - Subjective Progress Notes Subjective "Good." Client was seen while she was sitting up in her bed in her room. She did not make eye contact and she continued to look a magazine however she politely answered our questions and attempts to engage with short answers. She denies depression, denies anxiety, denies anger, denies thoughts of harming herself or others, denies hallucinations. She reports that she slept well last night and that she is eating well. She denied physical symptoms or concerns to discuss. Suicidal Ideation: None Homicidal Ideation: None [facility] - Objective Physical Exam Vital Signs Vital Signs Date Time Temp Pulse Resp B/P (MAP) Pulse Ox O2 Delivery O2 Flow Rate FiO2 09/29/18 18:40 18 09/27/18 09:49 98.6 84 105/62 (76) 95 Room Air Muscle Strength and Tone: WNL Gait and Station: Steady [facility] Medications Reviewed: Side Effects, Benefits of Medication, Risks Allergies Reviewed: Yes Mental Status Exam General Appearance: Casual, Well Groomed; No Good Eye Contact; Cooperative, Polite, Good Interaction; No Tearful, No Psychomotor Agitation; Psychomotor Retardation, Bizarre Mannerisms Speech: Clear, Normal Rate, Normal Rhythm, Normal Volume, Normal Tone (short answers to quesions), Other (would not speak to this service writer during rounds) Mood: No Euthymic (no response to provider, difficult obtain accurate assessment of mood, labile); Other (agitated.) Affect: Withdrawn (at times); No Tearful, No Anxious Thought Process: No Organized, No Logical Thought Content: No Suicidal Ideation, No Homicidal Ideation, No Delusions, No Auditory Halllucinations (likely), No Visual Hallucinations, No Thought Broadcasting, No Ideas of Reference; Obsessions ( paranoia and obsession with Blacks, Asians, police); No Compulsions, No Other Sensorium: Clear Cognition: Alert & Oriented-Person, Alert & Oriented-Place, Alert & Oriented-Ti me; No Jrhwo-Jalcvfmy-Qyqephrld (not fully) Memory: Immediate, Recent, Remote Intelligence: Average Insight Judgment: Poor (remains limited ) [facility] Assessment and Plan Rcdg-os-Sfdr Encounter Date: Oct 01, 2018 Jufq-nz-Umoy Encounter Time: 10:00 [facility] Plan: Necessary Precautions, Individual/Group Therapy, Admin/Titrate Meds, Educate Patient Tobacco Medications: Not Appropriate Condition Multpiple Antipsychotics Used: No Problems: (1) Schizophrenia Optional Permanent Comment: verses shizoaffective disorder. Last Edited By: Ronnie Koch on Sep 04, 2018 11:47 Status: Chronic Condition Client did speak to team this morning in rounds with short answers to questions denying any concerns. She has been cooperative with medications and no aggressive actions have occurred this weekend. PLAN: Continue current medications. Awaiting transfer to the [facility]. Problem Qualifiers (1) Schizophrenia: Schizophrenia type: undifferentiated schizophrenia Qualified Codes: F20.3 - Undifferentiated schizophrenia JAYE LAUREN WINDER HAND Oct 01, 2018 10:44
[2018-10-01] MEDS: QUEtiapine FUM 100 MG TAB PO SCH (21:45)
[2018-10-02] MEDS: DIVALPROEX SOD DR 500 MG TAB PO SCH (08:03)
[2018-10-02] MEDS: QUEtiapine FUM 25 MG TAB PO SCH (08:04)
[2018-10-02] MEDS ORDERED: QUEtiapine FUM 100 MG TAB PO ONE (09:20)
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
== END 2018-10-02 10:53 | DRG 885 ==
LOC: BHS 11:35 → EDBD 11:35 → BHS 08-17 11:00
PROVIDERS: ADMIT Psychiatry & Neurology Psychiatry; ATTEND Psychiatry & Neurology Psychiatry
DX: F25.0 Schizoaffective disorder, bipolar type (principal); F22 Delusional disorders; R45.6 Violent behavior
CPT/HCPCS: 36415; 80164; 82040; 82247; 82310; 82374; 82435; 82465; 82565; 82947; 83718; 84075; 84132; 84155; 84295; 84450; 84460; 84478; 84520; 85025